=== PATIENT | female | born 1965 | race Caucasian/White ===

== ENCOUNTER → 2018-08-31 12:06 | Outpatient (CLI) | payer OTHER, SELFPAY ==
--- NOTE | 2018-08-31 12:07 | DI.MRI.S_ITS ---
PROCEDURE: MR SHOULDER RT WO CON INDICATIONS: BACK PAIN IMPINGEMENT SYNDROME OF RIGHT SHOULDER TECHNIQUE: Noncontrast oblique coronal T2 fast spin echo with fat saturation, oblique sagittal T1 spin echo and T2 fast spin echo with fat saturation, axial T1 spin echo and T2 fast spin echo with fat saturation through the shoulder. COMPARISON: None. FINDINGS: Image quality: Excellent. Rotator cuff: Supraspinatus tendinopathy, and partial thickness articular sided tear involving the footprint and critical zone. There is also low-grade bursal sided partial thickness tear and technically, full-thickness pinpoint perforation cannot be entirely excluded for example image 10 series 12. However, no large or retracted full-thickness defect is seen. Infraspinatus tendinopathy also with partial thickness articular sided tear. Teres minor appears intact. Subscapularis tendinopathy and thickening. Low-grade articular sided tear cannot be excluded. There is fatty infiltration of the supraspinatus and infraspinatus muscles. There is atrophy of the subscapularis muscle. Bones and bursae: No bone marrow contusions or fractures. Moderate acromioclavicular joint degeneration. The acromion demonstrates conventional anatomy, without an os acromiale. Moderate subacromial-subdeltoid bursal fluid is present. Capsule and soft tissues: Superior labrum is not well seen although there is suggestion of intrasubstance intermediate signal change. There is blunted appearance of the anterior and posterior labrum with no definite intrasubstance fluid signal, suggestive of chronic fraying/degeneration. The long head of the biceps tendon demonstrates normal location and morphology. There is obliteration of the subcoracoid fat. No stable no Fat signal intensity mass seen within the subscapularis muscle on image 19 series 7, image 19 series 6 although this is not entirely included on the study. IMPRESSION: Supraspinatus tendinopathy with partial-thickness articular sided tear of the footprint and critical zone in addition to low-grade bursal sided tear. Technically, there may be a pinpoint full-thickness perforation as detailed above. No large or retracted full-thickness defect. Infraspinatus tendinopathy, with partial-thickness articular sided tear. Subscapularis tendinopathy and thickening with possible low-grade articular sided tear (although this would probably be chronic). Atrophy of the subscapularis muscle. Fatty infiltration of the supraspinatus and infraspinatus muscles. Moderate subacromial/subdeltoid bursitis. Probable superior labral degenerative fraying, which could be chronic. Blunted appearance of the anterior and posterior labrum also represent chronic labral degeneration. Recommend correlation clinical exam findings. 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 Dictated by: Jez Calderon M.D. on 08/31/2018 at 15:21 Approved by: Jez Calderon M.D. on 08/31/2018 at 16:04
--- NOTE | 2018-09-01 | DI.MRI.S_ITS ---
PROCEDURE: MR LUMBAR SPINE WO CON INDICATIONS: LOW BACK PAIN TECHNIQUE: Noncontrast sagittal T1 spin echo and T2 fast echo, sagittal STIR, axial T1 and T2 fast spin echo through the lumbar spine. In cases with scoliosis, additional coronal T2 fast spin echo may be performed. COMPARISON: [facility], MR, L-SPINE WITHOUT CONTRAST, 07/09/2015, 10:22. FINDINGS: Image quality: Excellent. Alignment and Curvature: There is minimal retrolisthesis at the L4-L5 level. Bone Marrow: Marrow is of normal overall signal. No acute vertebral body compression fractures. Scattered foci are seen, which are hyperintense on T1-weighted and T2-weighted imaging, which are most consistent with benign vertebral body hemangiomas. Spinal Cord: Conus medullaris terminates at the L1 level. Visualized cord demonstrates normal signal and size. Paraspinous Soft Tissues: No paravertebral masses. T12-L1: Normal appearance. L1-L2: Normal appearance. L2-L3: Moderate to severe loss of disc height and disc signal are seen. Moderate generalized disc bulge is seen. Mild facet joint hypertrophy is seen. Moderate bilateral neural foraminal narrowing is seen. Mild central canal narrowing is seen. These degenerative changes are slightly progressed compared to 2015. L3-L4: Moderate loss of disc height is seen. Loss of disc signal is seen. Moderate generalized disc bulge is seen. Moderate facet joint hypertrophy is seen. Moderate bilateral neural foraminal narrowing is seen. Moderate central canal narrowing is seen. These degenerative changes are mildly progressed compared to the prior MRI. L4-L5: The disc height is well-preserved. Loss of disc signal is seen at this level. Moderate generalized disc bulge is seen. There is a central/left disc extrusion seen, as on series 5 images 24 through 26, with inferior migration of disc material. Moderate facet joint hypertrophy is seen. There is at least moderate bilateral neural foraminal narrowing seen, left worse than right. Moderate central canal narrowing is seen. These degenerative changes have progressed compared to 2015. The left-sided disc extrusion is new. L5-S1: The disc height is well-preserved. Loss of disc signal is seen at this level. Moderate to prominent facet hypertrophy is seen. Moderate bilateral neural foraminal narrowing is seen, left worse than right. Mild central canal narrowing is seen. These degenerative changes are worse than in 2015. IMPRESSION: New left-sided disc extrusion at the L4-L5 level. Multiple levels of degenerative change are seen, which have progressed compared to 2015. Dictated by: Randal Pena M.D. on 09/01/2018 at 12:13 Approved by: Randal Pena M.D. on 09/01/2018 at 12:19
== END ==
PROVIDERS: PCP Nurse Practitioner Primary Care; Visit Provider Nurse Practitioner Primary Care
DX: M75.41 Impingement syndrome of right shoulder (principal); M75.111 Incomplete rotator cuff tear or rupture of right shoulder, not specified as traumatic; M75.51 Bursitis of right shoulder; M51.26 Other intervertebral disc displacement, lumbar region
CPT/HCPCS: 72148; 73221

== ENCOUNTER 2018-10-29 13:33 | Day surgery (SDC) | payer OTHER, SELFPAY ==
[2018-10-25 10:10] VITALS: BMI 30.2
[2018-10-29] VITALS (17 sets, daily range): BP systolic 105–134; BP diastolic 71–86; PULSE 88–104; RESP 10–16; TEMP 36.6–37.2; O2SAT 2–98; BMI 30.2
--- NOTE | 2018-10-29 | DI.RAD.S_ITS ---
PROCEDURE: XR LUMBAR SPINE 2-3V INDICATIONS: L-4-5, MICRODISCECTOMY LEFT TECHNIQUE: Single views of the lumbar spine were acquired. COMPARISON: None. FINDINGS: Spot fluoroscopic image demonstrating surgical instrument with the tip projecting at the L4-L5 level Dictated by: Jez Calderon M.D. on 10/29/2018 at 16:27 Approved by: Jez Calderon M.D. on 10/29/2018 at 16:28
[2018-10-29] MEDS: LACTATED RINGERS 1,000 ML 100 ML IV (14:35)
--- NOTE | 2018-10-29 14:53 | PM.PREOP ---
Pre-operative Note Interval Note Pre-op Check: Yes History & Physical Reviewed by Physician, Yes Exam Performed and Yes History & Physical exam performed today by Physician Changes: No
[2018-10-29] MEDS: CEFAZOLIN 2 GM/100 ML FROZ.PIGGY IV (15:15)
--- NOTE | 2018-10-29 15:48 | SUR.OPER ---
Prone on spine table, head in foam head support, padded chest and pelvic supports, gel pad at knees, lower legs supported by pillows; nipples, genitalia and toes free of pressure, arms secured on foam padded arm boards at <90 degrees abduction. Tape over blanket at thigh secured to table.
[2018-10-29] MEDS: BUPIVACAINE 0.25% W/ EPI VIAL 20 ML INJ (15:57)
[2018-10-29] MEDS: methylPREDNISolone acet DEPO 40 MG/ML VIAL INJ (15:58)
--- NOTE | 2018-10-29 17:02 | PM.OP.1 ---
Operative Date/Time/Diagnoses Date of procedure: 10/29/18 Time of procedure: 15:36 Pre-op diagnosis: 1. L4-5 disc herniation 2. L4-5 spinal stenosis Post-op diagnosis: same Procedure & Clinicians Procedure: 1. L4-5 laminectomy 2. Utilization of microsurgical technique and operating microscope Same procedure as scheduled: No Indications: Patient has been having chronic back pain and worsening lumbar radiculopathy. Patient failed multiple conservative management with worsening pain weakness and numbness in her lower extremity. Patient has been having difficulty performing activity of daily living. After discussing risks benefits of treatment options, patient elected proceed with surgery. Surgeon: Ying Browne Garnett Mechanic: Chely Espinal Click Yes if Unassisted: No Anesthesia Type: General Operative Notes Closure Type: primary Specimen(s): none sent Estimated Blood Loss (mL): 10 Blood products transfused: none Procedure in detail: Patient was seen in the preoperative area. Risks and benefits of the surgery was discussed with the patient. Informed consent was obtained from the patient and placed in the chart. Surgical site was marked. Patient was taken to the operative room. General anesthesia was administered. Prophylactic antibiotic was given to the patient less than 30 min before the incision was made. Patient was placed into a prone position on the Godwin table. Patient's back was then prepped and draped in the sterile fashion. Time-out was performed at this time. Using AP and lateral C-arm imaging the interval between L4-5 was identified and marked on patient's back. A 1 inch incision 1 in from midline was made on the left side. The fascia was incised in line with skin incision. Globus MARS retractors was placed inside the incision and docked onto the L4 lamina. Using microsurgical technique and operating microscope, a L4 laminotomy was performed using a Kerrison rongeur. Liagamentum flavum was resected at the site of the laminotomy. The disc space at [] was identified. Microdiscectomy was attempted by exposing the fragment of disc that was herniated. The disc fragment was found to be intimately adhered to the posterior aspect of the thecal sac. Decision at this time was to perform a laminectomy at L4 level. Using a Kerrison rongeur bilateral aspect of the L4 lamina along with medial portion of the L4-5 facet was resected in order to decompress the epidural space. After the L4-5 laminectomy was completed, the area medial lateral superior and inferior to the area of the laminectomy was inspected and explored using a micro curette. No other impinging structure was identified. The wound was then irrigated with sterile normal saline. 40 mg Depo-Medrol was placed into the epidural space. The deep fascia was closed with 1-0 Vicryl. The subcutaneous tissue was closed with 2-0 Vicryl. The skin was closed with 4-0 Monocryl. Patient tolerated the procedure well. There were no complications. Patient was transferred recovery room in stable condition. Complications: none Condition: stable Disposition: PACU Plan for aftercare: Discharge to home
[2018-10-29] MEDS: fentaNYL 100 MCG/2 ML INJ 50 MCG IV ×3 (17:44→18:07)
[2018-10-29] MEDS: hydrOXYzine 50 MG/ML INJ IM (17:56)
[2018-10-29] MEDS: LACTATED RINGERS 1,000 ML 42 ML IV (17:59)
--- NOTE | 2018-10-29 18:11 | SUR.PHASEI ---
Although voicing discomfort and some moaning validates tending to drop sats and resps with opiod. Pain vs. breathing conflict discussed with patient. She is told further med needs to be given with resp state and therefore safety in mind.
--- NOTE | 2018-10-29 18:17 | SUR.PHASEI ---
Sats into the mid 80s and resps 8-10 with some spontaneous recovery seen.
--- NOTE | 2018-10-29 18:25 | SUR.PHASEI ---
On room air now with resp ups and downs continuing. No future opiod to be given. Projects increased comfort.
[2018-10-29] MEDS: HYDROCODONE/ACET 5/325 TABLET 1 TAB PO (18:42)
--- NOTE | 2018-10-29 19:24 | SUR.PHASEII ---
Discharge information shared with [facility] per patient okay.
== END 2018-10-29 19:28 | disposition home or self-care (01) ==
PROVIDERS: PCP Nurse Practitioner Primary Care; Visit Provider Orthopaedic Surgery Orthopaedic Surgery of the Spine
PROC: (CPT 63030; principal; 2018-10-29 15:45)
DX: M51.16 Intervertebral disc disorders with radiculopathy, lumbar region (principal); M48.061 Spinal stenosis, lumbar region without neurogenic claudication; M19.90 Unspecified osteoarthritis, unspecified site; W01.0XXA Fall on same level from slipping, tripping and stumbling without subsequent striking against object, initial encounter; E66.9 Obesity, unspecified; E03.9 Hypothyroidism, unspecified; G43.909 Migraine, unspecified, not intractable, without status migrainosus; E11.9 Type 2 diabetes mellitus without complications; F33.41 Major depressive disorder, recurrent, in partial remission; Z68.41 Body mass index [BMI] 40.0-44.9, adult; Z79.84 Long term (current) use of oral hypoglycemic drugs
CPT/HCPCS: 63030; 72100; 76001; J0690; J1030; J1100; J1885; J2250; J2405; J2704; J3010; J3410

== ENCOUNTER 2019-01-28 09:17 | Inpatient (IN) | payer OTHER, SELFPAY ==
[2019-01-17 12:50] VITALS: BMI 39.6
[2019-01-28] VITALS (19 sets, daily range): BP systolic 76–123; BP diastolic 43–85; PULSE 78–96; RESP 10–18; TEMP 35.8–37.2; O2SAT 92–100; BMI 37.6
[2019-01-28] MEDS: ONDANSETRON 4 MG/2 ML INJ IV (10:30)
[2019-01-28] MEDS: LACTATED RINGERS 1,000 ML 42 ML IV ×2 (10:31→13:35)
[2019-01-28] MEDS: fentaNYL 100 MCG/2 ML INJ 50 MCG IV ×2 (11:00→11:15)
--- NOTE | 2019-01-28 11:04 | SUR.PREOP ---
Pt requested pain med. Dr. Day notified, medication ordered and given. O2 monitor placed. O2 sats wnl.
--- NOTE | 2019-01-28 11:22 | PM.PREOP ---
Pre-operative Note Interval Note History & Physical reviewed/Exam performed by Physician: Yes Changes to H&P: No
[2019-01-28] MEDS: MIDAZOLAM 2 MG/2 ML VIAL IV (11:35)
[2019-01-28] MEDS: CEFAZOLIN 2 GM/100 ML FROZ.PIGGY IV ×2 (11:45→20:20)
[2019-01-28] MEDS: BUPIVACAINE LIPOSOME 266 MG/20 ML VIAL INJ (12:20)
[2019-01-28] MEDS: BUPIVACAINE 0.25% W/ EPI 50 ML VIAL INJ (12:21)
[2019-01-28] MEDS: ACETAMINOPHEN IV 1,000 MG/100 ML VIAL 400 MG IV (12:55)
--- NOTE | 2019-01-28 14:27 | DI.RAD.S_ITS ---
PROCEDURE: XR LUMBAR SPINE 2-3V INDICATIONS: L4-5 TLIF TECHNIQUE: 2 operative views of the lumbar spine were acquired. COMPARISON: [facility], CR, XR LUMBAR SPINE 2-3V, 10/29/2018, 15:37. FINDINGS: AP and lateral operative views demonstrate posterior lateral kenisha and pedicle screw fixation of L4-L5 and interbody fusion. There is no radiographic evidence of complications. IMPRESSION: Expected operative appearance. Dictated by: Joey Butterfield M.D. on 01/28/2019 at 14:53 Approved by: Joey Butterfield M.D. on 01/28/2019 at 14:55
--- NOTE | 2019-01-28 14:28 | PM.OP.1 ---
Operative Date/Time/Diagnoses Date of procedure: 01/28/19 Time of procedure: 12:28 Pre-op diagnosis: 1. L4-5 recurrent disc herniation 2. L4-5 spinal stenosis with radiculopathy Post-op diagnosis: same Procedure & Clinicians Procedure: 1. L4-5 Postero-lateral and posterior interbody fusion 2. L4-5 interbody cage placement. 3. L4-5 decompressive laminectomy with bilateral facetecomies 4. L4-5 Posterior non-segmental instrumentation 5. [place] of bone marrow from iliac crest 6. Utilization of microsurgical technique and operating microscope Same procedure as scheduled: Yes Indications: Patient has been having chronic back pain and worsening lumbar radiculopathy. Patient had prior lumbar microdiskectomy surgery with good pain relief. Patient has been having worsening radiculopathy over the last 2 month. Repeat MRI to identify recurrence disc herniation at L4-5 level. Patient failed multiple conservative management with worsening pain weakness and numbness in her lower extremity. Patient has been having difficulty performing activity of daily living. After discussing risks benefits of treatment options, patient elected proceed with surgery. Surgeon: Ying Browne Social Media Content Manager: Chely Espinal Click Yes if Unassisted: No Anesthesia Type: General Operative Notes Closure Type: primary Specimen(s): none sent Prosthetic devices, grafts, tissues, transplants, or devices: Globus revolve screws, Rise cage Estimated Blood Loss (mL): 100 Blood products transfused: none Procedure in detail: Patient was seen in the preoperative area. Risks and benefits of the surgery was discussed with the patient. Informed consent was obtained from the patient and placed in the chart. Surgical site was marked. Patient was taken to the operative room. General anesthesia was administered. Prophylactic antibiotic was given to the patient less than 30 min before the incision was made. Patient was placed into a prone position on the Godwin table. Patient's back was then prepped and draped in the sterile fashion. Time-out was performed at this time. Using AP and lateral C-arm imaging the interval between L4-5 was identified and marked on patient's back. A 2 inch incision 2 in from midline was made on the left side first. The fascia was incised in line with skin incision. Globus MARS retractors was placed inside the incision and docked onto the L4 lamina. Using microsurgical technique and operating microscope, a L4 laminectomy and L4-5 facetectomy was performed using a Kerrison rongeur. The disc space at L4-5 was identified. And a total diskectomy was performed at L4-5 level. The endplates were decorticated using a rasp and shaver. The total diskectomy and decortication was performed at L4-5 level in order to to accomplish a L4-5 fusion. The local bone from the laminectomy and facetectomy was saved for local bone grafting. After the total diskectomy and decortication was completed, Bio4 bone graft material was combined with local bone that was harvested earlier. At this time, a separate skin is incision was made over the iliac crest. A Jamshidi needle was inserted into the iliac crest through a separate skin incision. 5 cc of bone marrow aspiration was obtained through the separate skin incision using a Jamshidi needle from the iliac crest. The bone marrow aspiration was combined with local bone and the via cell bone grafting material. The bone grafting material was placed into the L4-5 interbody space along with a expandable cage. The cage was expanded to its maximum height using the torque limiting screwdriver. At this time a mirror image incision was made on the right side. The fascia was incised in line with the skin incision. Globus MARS retractor was inserted and docked onto the L4-5 posterolateral gutter. Using the power drill, posterior-lateral decortication was performed at L4-5 level until bleeding cortical bone was identified. The remaining bone grafting material was placed into the L4-5 posterior lateral gutter he order to accomplish posterolateral fusion at the L4-5 level. Using the double C-arm technique, pedicle screws were placed into the L4-5 pedicles bilaterally. This was done by placing the Jamshidi needle into the pedicles, then placing the guidewires over the Jamshidi needle, and finally placing the cannulated screws over the guidewires bilaterally. After the pedicle screws were placed, 2 titanium rods was locked into the heads of the pedicle screws using locking caps and torque limiting screwdriver. After all the hardware was placed, and confirmed with AP and lateral C-arm imaging, the wound was then irrigated with sterile normal saline and packed with Ray-Ruth gauze for 3 min to accomplish hemostasis. After the gauze was removed the deep fascia was closed with #1 Vicryl suture. The subcutaneous layer was closed with 2-0 Vicryl. The skin was closed with skin steven. Patient tolerated the procedure well. There were no complications. Complications: none Condition: stable Disposition: PACU Plan for aftercare: Admit to inpatient hospital
--- NOTE | 2019-01-28 14:32 | P.OP_ITS ---
Operative Date/Time/Diagnoses Date of procedure: 01/28/19 Time of procedure: 12:28 Pre-op diagnosis: 1. L4-5 recurrent disc herniation 2. L4-5 spinal stenosis with radiculopathy Post-op diagnosis: same Procedure & Clinicians Procedure: 1. L4-5 Postero-lateral and posterior interbody fusion 2. L4-5 interbody cage placement. 3. L4-5 decompressive laminectomy with bilateral facetecomies 4. L4-5 Posterior non-segmental instrumentation 5. [place] of bone marrow from iliac crest 6. Utilization of microsurgical technique and operating microscope Same procedure as scheduled: Yes Indications: Patient has been having chronic back pain and worsening lumbar radiculopathy. Patient had prior lumbar microdiskectomy surgery with good pain relief. Patient has been having worsening radiculopathy over the last 2 month. Repeat MRI to identify recurrence disc herniation at L4-5 level. Patient failed multiple conservative management with worsening pain weakness and numbness in her lower extremity. Patient has been having difficulty performing activity of daily living. After discussing risks benefits of treatment options, patient elected proceed with surgery. Surgeon: Ying Browne Composite Assembler: Chely Espinal Click Yes if Unassisted: No Anesthesia Type: General Operative Notes Closure Type: primary Specimen(s): none sent Prosthetic devices, grafts, tissues, transplants, or devices: Globus revolve screws, Rise cage Estimated Blood Loss (mL): 100 Blood products transfused: none Procedure in detail: Patient was seen in the preoperative area. Risks and benefits of the surgery was discussed with the patient. Informed consent was obt ained from the patient and placed in the chart. Surgical site was marked. Patient was taken to the operative room. General anesthesia was administered. Prophylactic antibiotic was given to the patient less than 30 min before the incision was made. Patient was placed into a prone position on the Godwin table. Patient's back was then prepped and draped in the sterile fashion. Time- out was performed at this time. Using AP and lateral C-arm imaging the interval between L4-5 was identified and marked on patient's back. A 2 inch incision 2 in from midline was made on the left side first. The fascia was incised in line with skin incision. Globus MARS retractors was placed inside the incision and docked onto the L4 lamina. Using microsurgical technique and operating microscope, a L4 laminectomy and L4-5 facetectomy was performed using a Kerrison rongeur. The disc space at L4-5 was identified. And a total diskectomy was performed at L4-5 level. The endplates were decorticated using a rasp and shaver. The total diskectomy and decortication was performed at L4-5 level in order to to accomplish a L4-5 fusion. The local bone from the laminectomy and facetectomy was saved for local bone grafting. After the total diskectomy and decortication was completed, Bio4 bone graft material was combined with local bone that was harvested earlier. At this time, a separate skin is incision was made over the iliac crest. A Jamshidi needle was inserted into the iliac crest through a separate skin incision. 5 cc of bone marrow aspiration was obtained through the separate skin incision using a Jamshidi needle from the iliac crest. The bone marrow aspiration was combined with local bone and the via cell bone grafting material. The bone grafting material was placed into the L4-5 interbody space along with a expandable cage. The cage was expanded to its maximum height using the torque limiting screwdriver. At this time a mirror image incision was made on the right side. The fascia was incised in line with the skin incision. Globus MARS retractor was inserted and docked onto the L4-5 posterolateral gutter. Using the power drill, posterior- lateral decortication was performed at L4-5 level until bleeding cortical bone was identified. The remaining bone grafting material was placed into the L4-5 posterior lateral gutter he order to accomplish posterolateral fusion at the L4- 5 level. Using the double C-arm technique, pedicle screws were placed into the L4-5 pedicles bilaterally. This was done by placing the Jamshidi needle into the pedicles, then placing the guidewires over the Jamshidi needle, and finally placing the cannulated screws over the guidewires bilaterally. After the pedicle screws were placed, 2 titanium rods was locked into the heads of the pedicle screws using locking caps and torque limiting screwdriver. After all the hardware was placed, and confirmed with AP and lateral C-arm imaging, the wound was then irrigated with sterile normal saline and packed with Ray-Ruth gauze for 3 min to accomplish hemostasis. After the gauze was removed the deep fascia was closed with #1 Vicryl suture. The subcutaneous layer was closed with 2-0 Vicryl. The skin was closed with skin steven. Patient tolerated the procedure well. There were no complications. Complications: none Condition: stable Disposition: PACU Plan for aftercare: Admit to inpatient hospital
[2019-01-28] MEDS: LORazepam 2 MG/ML SYRINGE 0.25 MG IV ×2 (14:41→15:19)
[2019-01-28] MEDS: HYDROMORPHONE 2 MG INJ 1 MG IV ×4 (14:42→15:18)
[2019-01-28] MEDS: hydrOXYzine 50 MG/ML INJ 25 MG IM (15:43)
[2019-01-28] MEDS: OXYCODONE/ACETAMINOPHEN 5/325 TABLET 2 TAB PO (15:44)
--- NOTE | 2019-01-28 15:47 | SUR.PHASEI ---
Called Dr Day to obtain medical orders. pt wanted percocet. pt states that is what works for her . Hydroxyzine 25mg given IM in right thigh. for muscle spasm.
[2019-01-28] MEDS: SODIUM CHLORIDE 0.9% 1,000 ML 100 ML IV (16:51)
[2019-01-28] MEDS: OXYCODONE IR 10 MG TABLET PO ×2 (17:44→20:23)
[2019-01-28] MEDS: hydrOXYzine pamoate 25 MG CAPSULE PO ×2 (17:47→21:43)
[2019-01-28] MEDS: HYDROMORPHONE 1 MG INJ 0.5 MG IV ×2 (19:36→21:41)
--- NOTE | 2019-01-28 20:18 | PC.NURSE ---
Pt sobbing in bed d/t pain in back 07/19. Pt was encouraged to turn onto side and allow staff to position for comfort with ice to site. This was attempted, but pt did not tolerate stating prefers backlying. Pt was assisted to reposition. Meds as per emar.
[2019-01-28] MEDS: ACETAMINOPHEN 325 MG TABLET 650 MG PO (20:20)
[2019-01-28] MEDS: CITALOPRAM 20 MG TABLET 40 MG PO (20:20)
[2019-01-28] MEDS: DOCUSATE 100 MG CAPSULE PO (20:21)
[2019-01-28] MEDS: lamoTRIgine 100 MG TABLET PO (20:21)
[2019-01-28] MEDS: PANTOPRAZOLE 40 MG TABLET PO (20:22)
[2019-01-28] MEDS: SENNOSIDES 8.6 MG TABLET 17.2 MG PO (20:22)
[2019-01-28] MEDS: SUCRALFATE 1 GM TABLET PO (20:23)
[2019-01-28] MEDS: TRAZODONE 100 MG TABLET PO (20:23)
--- NOTE | 2019-01-28 21:21 | PC.NURSE ---
Addendum entered and electronically signed by Patrice Velasquez R.N. 01/28/19 21:26: Pt has been on oxycodone 10 q 3 hrs, and hydromorphone 0.5 q 2 hrs for pain. Pain relief has only been at 6-7/10. Pt has had a hard time with her pain level and getting comfortable. Dressing was re-enforced w/ ABD pad, because of increases sangious drainage. Original Note: Safe hand off from PACU, pt A&O, on 2 liters NC, 98%. Lungs clear bilaterally. Dressing had quarter size ammt. of blood shadowing on dressing, otherwise clean dry and intact. Pt was dozing off and on.
[2019-01-29] VITALS (8 sets, daily range): BP systolic 93–130; BP diastolic 59–77; PULSE 75–93; RESP 16–18; TEMP 36.5–37.6; O2SAT 95–100
[2019-01-29] MEDS: hydrOXYzine pamoate 25 MG CAPSULE PO ×5 (01:29→21:52)
[2019-01-29] MEDS: OXYCODONE IR 10 MG TABLET PO ×3 (01:29→18:43)
[2019-01-29] MEDS: SODIUM CHLORIDE 0.9% 1,000 ML 100 ML IV (03:24)
[2019-01-29] MEDS: CEFAZOLIN 2 GM/100 ML FROZ.PIGGY IV (04:12)
[2019-01-29] MEDS: HYDROMORPHONE 1 MG INJ 0.5 MG IV (05:56)
--- NOTE | 2019-01-29 06:56 | PC.NURSE ---
pt AO and c/o pain throughout shift. Back pain at start of shift started at 7/10 administered oxycodone and Vistaril at 0130. Pain still at 8/10 at 0555 and administered IV 0.5mg Dilaudid. BP was 93/61 and 106/69. pt up to BSC and voiding. ABD pad reinforced to bad on evening shift. NS infusing at 100/hr.
[2019-01-29] MEDS: LEVOTHYROXINE 25 MCG TABLET PO (07:01)
--- NOTE | 2019-01-29 07:51 | PM.PNPO.1 ---
Subjective Date Patient Seen: 01/29/19 Interval history: Patient seen bedside status post L4-[address] Browne postop day 1. Patient had significant pain over night as well as issues with hypotension. She is very anxious today. Exam Vital Signs (past 8 hours): - 01/29/19 04:22 01/29/19 04:54 Temperature 98.5 F Pulse Rate 75 Respiratory Rate 16 Blood Pressure 93/61 106/69 Pulse Oximetry 100 Oxygen Delivery Method Nasal Cannula Oxygen Flow Rate 2 Narrative Exam Narrative: Well-developed, well-nourished, no acute distress. Alert and oriented to person, place, and time. Dressing on lumbar spine is clean, dry, and intact with no signs of drainage. Minimal erythema and generalized swelling around the surgical site. Neurovascularly intact in bilateral lower extremities with soft and compressible calves. Range of motion intact bilateral lower extremities. Objective Labs Result Diagrams: 01/29/19 08:15 Assessment & Plan Post-op (1) Lumbar stenosis: Postoperative Procedures Operation Date: 01/28/19 12:15 Actual Procedures Side Surgeon p L4-5 TLIF Ying Browne MD 1. POD #1- increased oxycodone dose, 1 L bolus for hypotension. Added steroid burst to help with pain. PT/OT. Dispo-pending pain control and movement with PT. Quality VTE Deep Vein Thrombosis/Pulmonary Embolism Present on Admission: No
[2019-01-29 08:29] LABS: Hematocrit 36.5 % (36-46); Hemoglobin 11.7 g/dL (12.0-16.0)
[2019-01-29] MEDS: SUCRALFATE 1 GM TABLET PO ×4 (08:57→20:40)
[2019-01-29] MEDS: DEXAMETHASONE 4 MG TABLET 8 MG PO (08:57)
[2019-01-29] MEDS: lamoTRIgine 100 MG TABLET PO ×2 (08:58→20:38)
[2019-01-29] MEDS: SPIRONOLACTONE 25 MG TABLET PO ×2 (08:58→20:39)
[2019-01-29] MEDS: PANTOPRAZOLE 40 MG TABLET PO ×2 (08:58→20:38)
[2019-01-29] MEDS: DOCUSATE 100 MG CAPSULE PO ×2 (09:00→20:38)
[2019-01-29] MEDS: OXYCODONE IR 10 MG TABLET 15 MG PO ×2 (09:01→12:02)
[2019-01-29] MEDS: SODIUM CHLORIDE 0.9% 1,000 ML 1000 ML IV (09:48)
--- NOTE | 2019-01-29 11:45 | PT.IIE ---
Current Diagnoses Spinal stenosis, lumbar region without neurogenic claudication (01/28/19) Other intervertebral disc displacement, lumbar region (01/28/19) Surgery Performed Operation Date: 01/28/19 12:15 Actual Procedures p L4-5 TLIF - Ynig Browne MD Surgical History (Last Updated 01/17/19 @ 13:15 by Marsha Shaw RN) History of colonoscopy (Acute) History of esophagogastroduodenoscopy (EGD) (Acute) History of abdominal surgery (Acute) History of carpal tunnel release (Acute) History of tonsillectomy (Acute) Hx of microdiscectomy (Acute 10/29/18) Medical History (Last Updated 01/17/19 @ 13:15 by Marsha Shaw RN) ADHD (Acute) Chronic back pain (Acute) Depression (Acute) Diabetes (Acute) GERD (gastroesophageal reflux disease) (Acute) Headache, migraine (Acute) History of hysterectomy (Acute) Hx of nephrolithotomy with removal of calculi (Acute) Hyperlipidemia (Acute) Hypertension (Acute) Hypothyroidism (Acute) Lumbar disc disease (Acute) Lumbar disc herniation with radiculopathy (Acute) Obesity (Acute) Osteoarthritis (Acute) Partial tear of rotator cuff (Acute) Rotator cuff tear arthropathy of right shoulder (Acute) Shoulder impingement (Acute) Shoulder pain, right (Acute) Wrist injury (Acute ~09/23/18) Physical Therapy Inpatient Evaluation/Re-Eval M1 PT/OT-IP Prior Functional Status Start: 01/29/19 12:34 Freq: NEEDED Status: Active Protocol: Document 01/29/19 11:45 DLM (Rec: 01/29/19 12:54 DLM [email or web address]) Medical Review Prior Functional Status Medical History Reviewed Yes Diet/Fluid Consistency Regular Communication WNL Mobility and Gait Independent without device, used cane to help manage her back pain, difficulty walking before surgery due to high pain levels Activities of Daily Living and IADL's Independent Prior Functional Level (Other details) she has two dogs Social History Household Members none Living Arrangements Mobile home Number of Floors (Floors) One Floor Number of Stairs To Enter/Railing? 2, no rail Home Equipment Quad Cane Additional Social History Comment Works for [employer]. She has narrow halls at home. M2 PT-IP Current Condition Start: 01/29/19 12:34 Freq: NEEDED Status: Active Protocol: Document 01/29/19 11:45 DLM (Rec: 01/29/19 12:54 DLM [email or web address]) Physical Therapy Current Condition Current Condition Evaluation Date 01/29/19 Treatment Diagnosis L4-5 TLIF Onset Date 01/28/19 Precautions Lumbar Precautions Log Roll No Twisting Limit Bending Lifting Restriction of 10 lbs Gait Belt above Incisional Area M3 PT-IP Subjective Start: 01/29/19 12:34 Freq: NEEDED Status: Active Protocol: Document 01/29/19 11:45 DLM (Rec: 01/29/19 12:54 DLM [email or web address]) Subjective Physical Therapy Visit Type Type Initial Evaluation Visit Start Time 11:16 Visit Stop Time 11:45 Total Visit Minutes 29 Number of APPLICATIONS ENGINEERING MANAGER Visits 0 Physical Therapy Visit Comments Patient Comments The pain is really bad but still better than before surgery Patient Goals return home with friends to help her Therapy Pain Assessment Pain When Pain Assessed After Treatment Pain Present Pain Present Pain Reported Location Back Intensity 7 Scale Used Numeric (1 - 10) Description Aching Cramping With Movement Pain Behaviors Crying Facial Grimacing Guarding Moaning Wincing Pain Management Techniques Re-positioning M4 PT-IP Mobility and Gait Start: 01/29/19 12:34 Freq: NEEDED Status: Active Protocol: Document 01/29/19 11:45 DLM (Rec: 01/29/19 12:54 DLM [email or web address]) PT-Bed Mobility Assessment Rolling Type of Rolling Log Rolling Roll to Left Supine to Sit Supine to Sit Moderate Assistance Maximum Assistance Scooting Scooting to Edge of Bed Standby Assistance PT-Transfer Assessment Sit to and From Stand Sit to and from Stand Minimal Assistance Use of Upper Extremities Equipment Transfer Assistive Device Gait Belt Front Wheeled Walker Transfers Transfer Destination Chair Bedside Commode Transfer Technique Stand Step Pivot Transfer Ability Level of Assist Minimal Assistance Use of Upper Extremities Comments Mobility Comments up to bedside commode to urinate Gait Assessment Gait Gait Assistance Required: Contact Guard Assist Minimum Assistance Distance (Feet) 4 Assistive Devices Assistive Device Gait Belt Front Wheeled Walker Gait Deviations General Gait Pattern Antalgic Factors Limiting Gait Function Factors Limiting Gait Function Decreased Activity Tolerance Decreased Strength Limited Range of Motion Pain Comments Gait Comments able to bear weight on LE's PT-Balance Assessment Sitting Balance and Reactions Static Sitting Balance Ability Fair Dynamic Sitting Balance Ability Fair Standing Balance and Reactions Static Standing Balance Ability Fair Dynamic Standing Balance Ability Fair Device Used FWW Comments Other Balance Tests/Deviations/Treatment balance limited due to back : pain M5 PT-IP Objective Assessments Start: 01/29/19 12:34 Freq: NEEDED Status: Active Protocol: Document 01/29/19 11:45 DLM (Rec: 01/29/19 12:54 DLM [email or web address]) Orientation Orientation/Cognition Level of Alertness Alert Orientation Name Age Birthday Month Date Year Day of Week Place Situation Language Function Ability No Deficits Noted Safety Awareness Understands Safety Issues Memory Description No Deficits Noted Gross Range of Motion Upper Extremity ROM Assessment Within Functional Limits Impairments trunk impaired due to pain Lower Extremity ROM Assessment Within Functional Limits Strength Upper Extremity Strength Assessment Within Functional Limits Lower Extremity Strength Assessment Bilaterally Impaired Hip pain limits functional use Coordination Assessment Gross Coordination Gross Coordination WNL Sensation Assessment Sensation Gross Sensation Left LE Impaired Sensation Description Tingling Comments Sensation Comments tingling in left LE, improved since surgery per pt Muscle Tone Muscle Tone WNL Yes Comments Muscle Tone Comments she reports muscle cramping M6 PT-IP Treatment Start: 01/29/19 12:34 Freq: NEEDED Status: Active Protocol: Document 01/29/19 11:45 DLM (Rec: 01/29/19 12:54 DLM [email or web address]) Physical Therapy Treatment Exercises Exercises Ankle Pumps Education Education Provided Precautions Safety Vital Signs: Seated Edge of Bed BP 105/60 and HR 93 While on bedside commode BP 116/79 and HR 98 Seated in recliner BP 104/72 and HR 89 NO light-headedness nor dizziness reported. M7 PT-IP Assessment and Plan Start: 01/29/19 12:34 Freq: NEEDED Status: Active Protocol: Document 01/29/19 11:45 DLM (Rec: 01/29/19 12:54 DLM [email or web address]) PT Summary Assessment and Plan Potential Rehabilitation Potential Good Status of Condition at Evaluation Unstable Summary Impairments Pain ROM Strength Balance Bed Mobility Transfers Gait Activity Tolerance Assessment Summary Benita reports having high levels of pain. She was able to get up to bedside commode and to recliner this visit with fWW and one person assist . Her pain prevented her from further gait this visit. She is motivated to return home with assist from friends. She will need to continue to progress to be safe to return home. She used a fWW well today but she is uncertain if a fWW will fit down the halls of her mobile home which are very narrow. Will continue to assess for discharge planning and equipment needs as she progresses. Goals Bed Mobility Goal Independent Transfer Goal Independent Front Wheeled Walker Gait Goal Independent Front Wheel Walker Gait Distance 100 feet Other Goals Up and down 2 steps with min assist. Days to Meet Goals 3 Frequency of Treatment Frequency Of Treatment Twice a Day Treatment Plan Physical Therapy Treatment Plan Bed Mobility Training Transfer Training Gait Training Therapeutic Exercise Balance Retraining Post Op Education Discharge Planning Hot or Cold Pack Other Recommendations and Next Treatment encourage relaxation Focus techniques to manage her pain Recommendations To Nursing Amount of Assist Needed 1 Person Assist Discharge Recommendations PT Discharge Recommendations Home with Assistance Other Discharge Recommendations continue to assess for discharge planning Equipment Needed for Home Before possible FWW Discharge
--- NOTE | 2019-01-29 14:53 | OT.IP.EVAL ---
Current Diagnoses Spinal stenosis, lumbar region without neurogenic claudication (01/28/19) Other intervertebral disc displacement, lumbar region (01/28/19) Surgery Performed Operation Date: 01/28/19 12:15 Actual Procedures p L4-5 TLIF - Ying Browne MD Past Medical History (Last Updated 01/17/19 @ 13:15 by Marsha Shaw, RN) ADHD (Acute) Chronic back pain (Acute) Depression (Acute) Diabetes (Acute) GERD (gastroesophageal reflux disease) (Acute) Headache, migraine (Acute) History of hysterectomy (Acute) Hx of nephrolithotomy with removal of calculi (Acute) Hyperlipidemia (Acute) Hypertension (Acute) Hypothyroidism (Acute) Lumbar disc disease (Acute) Lumbar disc herniation with radiculopathy (Acute) Obesity (Acute) Osteoarthritis (Acute) Partial tear of rotator cuff (Acute) Rotator cuff tear arthropathy of right shoulder (Acute) Shoulder impingement (Acute) Shoulder pain, right (Acute) Wrist injury (Acute ~09/23/18) Surgical History (Last Updated 01/17/19 @ 13:15 by Marsha Shaw RN) History of colonoscopy (Acute) History of esophagogastroduodenoscopy (EGD) (Acute) History of abdominal surgery (Acute) History of carpal tunnel release (Acute) History of tonsillectomy (Acute) Hx of microdiscectomy (Acute 10/29/18) Occupational Therapy Inpatient Evaluation/Re-Eval M1 PT/OT-IP Prior Functional Status Start: 01/29/19 12:34 Freq: NEEDED Status: Active Protocol: Document 01/29/19 14:53 EDISON (Rec: 01/29/19 15:59 PJM [id number]) Medical Review Prior Functional Status Medical History Reviewed Yes Diet/Fluid Consistency Regular Communication WNL Mobility and Gait Independent without device, used cane to help manage her back pain, difficulty walking before surgery due to high pain levels Activities of Daily Living and IADL's Independent with all self care , friend has been assisting with housework due to pt's LBP , pt has 2 dogs Prior Functional Level (Other details) 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 Social History Household Members none Living Arrangements Mobile home Number of Floors (Floors) One Floor Number of Stairs To Enter/Railing? 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 Additional Social History Comment pt states friends can assit with dogs and client services assistant after d/c PRN M2 OT-IP Current Condition Start: 01/29/19 15:38 Freq: Status: Active Protocol: Document 01/29/19 14:53 PJM (Rec: 01/29/19 15:59 PJM [email or web address]) Occupational Therapy Current Condition Current Condition Evaluation Date 01/29/19 Treatment Diagnosis decreased self care, functional mobility S/P L4-5 TLIF Diagnosis Onset Date 01/28/19 Post Operative Precautions Lumbar Precautions Log Roll No Twisting Limit Bending Lifting Restriction of 10 lbs Gait Belt above Incisional Area M3 OT- IP Subjective and Pain Start: 01/29/19 15:38 Freq: Status: Active Protocol: Document 01/29/19 14:53 PJM (Rec: 01/29/19 15:59 PJM [id number]) OT- Subjective Occupational Therapy Visit Type Type Initial Evaluation Visit Start Time 14:14 Visit Stop Time 14:53 Total Visit Minutes 39 Notes Pt started on steroids this AM , per RN, due to high pain level. Occupational Therapy Visit Comments Patient Comments This really hurts. Patient/Caregiver Goals to have less pain, go home and see her dog. OT Pain Assessment Pain When Pain Assessed After Treatment Pain Present Pain Present Pain Reported Location Rt shoulder Intensity 8 Description Aching Acute Pain Behaviors Facial Grimacing Guarding Moaning Wincing Management Techniques Distraction Re-positioning Timing of Activity with Medications M4 OT- IP ADL's Start: 01/29/19 15:38 Freq: Status: Active Protocol: Document 01/29/19 14:53 PJM (Rec: 01/29/19 15:59 PJM [id number]) OT [id number] General Evaluation Self-Feeding Ability Independent OT ADL-Grooming General Evaluation Grooming Ability Standby Assistance Comments OT Grooming Comments after set up in chair OT ADL-Oral Care General Eval Oral Care Ability Standby Assistance Areas of Assistance Brushing Teeth Devices Oral Care Devices Toothbrush Comments Oral Care Comments after set up in chair OT ADL-Dressing General Eval Upper Body Dressing Ability Standby Assistance Lower Body Dressing Ability Maximum Assistance Assistive Devices Dressing Assistive Devices Long Handled Shoe Horn [employer] Project Engineer Sock Aid Comments OT Dressing Comments Began education re: use of senior clinical research scientist, sock aid and long shoe horn for LB dressing within lumbar spine precautions. All equipt provided at pt request. OT ADL-Toileting General Evaluation Toileting Ability Standby Assistance Areas Needing Assistance Perform Perineal Hygiene Devices Toileting Assistive Devices Commode Comments OT Toileting Comments Provided education re: body mechanics and options/ resources for toilet paper aids. OT ADL-Bathing Bathing Type Bathing Type Shower Comments OT Bathing Comments Pt has been sitting on edge of tub shower combo for shower. Pt has long bath sponge. Provided education re: body mechanics and recommend shower seat. Resource list provided. M5 OT- IP IADL's Start: 01/29/19 15:38 Freq: Status: Active Protocol: Document 01/29/19 14:53 PJM (Rec: 01/29/19 15:59 PJ [id number]) OT-Instrumental Activities of Daily Living Deficits IADL Deficits Identified Deficits Home Safety Awareness Awareness of Need for Assistance at Home Good Awareness Ability to Problem Solve Emergency Able to Problem Solve Situations Medication Management Medication Management No Deficits Identified Money Management Money Management No Deficits Identified Meal Preparation Meal Preparation Caregiver Provides Assist Meal Preparation Comments pt states friends can assist PRN after d/c until pt able Washing And Screening Plant Supervisor Washing And Screening Plant Supervisor Caregiver Provides Assist Washing And Screening Plant Supervisor Comments pt states friends can assist PRN after d/c until pt able Driving Driving Caregiver Provides Assist Driving Comments pt states friends can assist PRN after d/c until pt able M6 OT- IP Functional Cognition Start: 01/29/19 15:38 Freq: Status: Active Protocol: Document 01/29/19 14:53 PJM (Rec: 01/29/19 15:59 PJM [id number]) Cognitive Factors Limiting Selfcare Function Cognitive Ability Level of Alertness Alert Patient Orientation Name Age Birthday Month Date Year Day of Week Place Situation Attention Span Ability Capable of Focused Attention Capable of Sustained Attention Ability to Follow Commands Able to Follow One Step Commands Memory Description No Deficits Noted Safety Awareness No Deficits Noted Problem Solving Ability No deficits Noted Cognitive Comments Cognitive Assessment Comments pt distracted by high pain level but asking apporpriate questions about adapted ADLS OT- Vision and Hearing OT- Hearing Assessment OT- Hearing Assessment WFL OT- Vision Assessment Visual Acuity WFL M7 OT- IP Mobility and Balance Start: 01/29/19 15:38 Freq: Status: Active Protocol: Document 01/29/19 14:53 PJM (Rec: 01/29/19 15:59 PJM [id number]) OT- Bed Mobility Assessment Rolling Type of Rolling Roll to Left Level of Assistance Standby Assistance Supine to Sit Supine to Sit Assist Standby Assistance Scooting Scooting to Edge of Bed Standby Assistance OT-Transfer Assessment Sit to and From Stand Sit to and from Stand Contact Guard Assistance Transfers Transfer Ability Contact Guard Assistance Technique Transfer Destination Bedside Commode Chair Transfer Technique Stand Step Pivot Devices Transfer Assistive Devices Gait Belt Front Wheeled Walker Comments Mobility Comments close SBA and verbal cues for bed mobility for technique OT- Gait Assessment Gait Gait Assistance Required: Contact Guard Assist Distance (Feet) 3 Assistive Devices Assistive Device Gait Belt Front Wheeled Walker Comments Gait Ability Comments distance limited by high pain level OT- Balance Assessment Sitting Balance and Reactions Static Sitting Balance Ability Good Dynamic Sitting Balance Ability Good Standing Balance and Reactions Static Standing Balance Ability Good M8 OT- IP Objective Assessments Start: 01/29/19 15:38 Freq: Status: Active Protocol: Document 01/29/19 14:53 PJM (Rec: 01/29/19 15:59 PJM [id number]) OT Gross Range of Motion Upper Extremity Range of Motion Assessment Right Impaired ROM Impairments R shoulder scaption limited to ~70 degrees by pain with shoulder surgery pending. Pt is scheduled for R shoulder arthroscopic debridement of partial rotator cuff tear in February. Distal AROM WFL in RUE. LUE AROM WFL. OT Strength Upper Extremity Strength Assessment Within Functional Limits Hand Headlight Assembler Strength Hand Dominance Right Comments Strength Comments R shoulder NT due to pain. OT- Coordination Assessment Comments Coordination Comments WFL BUE OT-Muscle Tone Assessment Muscle Tone WNL Yes OT Sensation Assessment Comments Summary Comments Pt reports some numbness/ tingling of fingertips in R hand. Otherwise BUE WNL. M9 OT- IP Assessment and Plan Start: 01/29/19 15:38 Freq: Status: Active Protocol: Document 01/29/19 14:53 PJM (Rec: 01/29/19 15:59 PJM [id number]) OT Summary Assessment and Plan Potential Rehabilitation Potential Good Analytic Complexity at Evaluation Low Summary OT Impairments Pain Functional Mobility Grooming Dressing Toileting Bathing Toilet Transfers Shower Transfers Progress Towards Goals Slow Progress due to Pain Assessment Summary Low complexity OT assessment completed with emphasis on lumbar spine precautions after recent L4-5 fusion. Pt's high pain level significantly interfering with activity tolerance today. Pt currently has performance deficits in all functional mobility/ transfers, standing grooming, dressing, bathing and toileting. Began education re: lumbar spine precautions, adapted self care techniques for dressing and toileting. Anticipate pt will progress steadily once pain level decreases, and be able to d/c home with assist from friends . Goals Grooming Goal Independent Dressing Goal Independent Long Handled Shoe [employer] Project Engineer Sock Aid Toileting Goal Independent Toilet Paper Aid Bathing Goal Standby Assistance Toilet Transfer Goal Independent Standard Toilet Shower Transfer Goal Standby Assistance Tub/Shower Combination Shower Chair Patient/Caregiver Education Goal Demonstrate Post-Op Precautions Demonstrate Energy Conservation and Pacing Caregiver Independent Assisting Patient OT-Other Goals Grooming to be done standing at sink with good body mechanics and safety awareness . Days to Meet Goals 3 Frequency of Treatment Frequency Of Treatment Once a Day Treatment Plan OT Treatment Plan ADL Training Functional Mobility Patient/Family Education Discharge Planning Discharge Recommendations OT Discharge Recommendations Home with Assistance Home Equipment Needs shower seat, toilet paper aid (pt plans to order these online)
[2019-01-29] MEDS: OXYCODONE IR 5 MG TABLET 15 MG PO ×3 (14:56→21:52)
--- NOTE | 2019-01-29 15:00 | PT.IPTN ---
Current Diagnoses Spinal stenosis, lumbar region without neurogenic claudication (01/28/19) Other intervertebral disc displacement, lumbar region (01/28/19) Surgery Performed Operation Date: 01/28/19 12:15 Actual Procedures p L4-5 TLIF - Ying Browne MD Physical Therapy Treatment Note M2 PT-IP Current Condition Start: 01/29/19 12:34 Freq: NEEDED Status: Active Protocol: Document 01/29/19 11:45 DLM (Rec: 01/29/19 12:54 DLM [email or web address]) Physical Therapy Current Condition Current Condition Evaluation Date 01/29/19 Treatment Diagnosis L4-5 TLIF Onset Date 01/28/19 Precautions Lumbar Precautions Log Roll No Twisting Limit Bending Lifting Restriction of 10 lbs Gait Belt above Incisional Area M3 PT-IP Subjective Start: 01/29/19 12:34 Freq: NEEDED Status: Active Protocol: Document 01/29/19 15:00 DLM (Rec: 01/29/19 17:19 DLM [email or web address]) Subjective Physical Therapy Visit Type Type Treatment Note Visit Start Time 14:45 Visit Stop Time 15:00 Total Visit Minutes 15 Number of HOME FURNISHINGS SALES REPRESENTATIVE Visits 0 Physical Therapy Visit Comments Patient Comments She c/o pain in her back that goes into her LE's Therapy Pain Assessment Pain When Pain Assessed After Treatment Pain Present Pain Present Pain Reported Location Back Intensity 9 Scale Used Numeric (1 - 10) Description Aching Cramping Pain Behaviors Facial Grimacing Guarding Moaning Wincing Pain Management Techniques Apply Cold Re-positioning M4 PT-IP Mobility and Gait Start: 01/29/19 12:34 Freq: NEEDED Status: Active Protocol: Document 01/29/19 15:00 DLM (Rec: 01/29/19 17:19 DLM [email or web address]) PT-Bed Mobility Assessment Rolling Type of Rolling Log Rolling Roll to Left Level of Assist Standby Assistance Supine to Sit Supine to Sit Standby Assistance Sit to Supine Sit to Supine Minimal Assistance Scooting Scooting to Edge of Bed Standby Assistance PT-Transfer Assessment Sit to and From Stand Sit to and from Stand Contact Guard Assistance Use of Upper Extremities Equipment Transfer Assistive Device Gait Belt Front Wheeled Walker Transfers Transfer Destination Bed Transfer Technique Stand Step Pivot Transfer Ability Level of Assist Contact Guard Assistance Use of Upper Extremities Gait Assessment Gait Gait Assistance Required: Contact Guard Assist Distance (Feet) 10 Assistive Devices Assistive Device Gait Belt Front Wheeled Walker Gait Deviations General Gait Pattern Decreased Stride Length Factors Limiting Gait Function Factors Limiting Gait Function Decreased Activity Tolerance Pain Comments Gait Comments gait 2 x 10 feet, seated rest between gait trials, she reports increased pain in her bilateral LE's with gait PT-Balance Assessment Sitting Balance and Reactions Static Sitting Balance Ability Good Dynamic Sitting Balance Ability Good Standing Balance and Reactions Static Standing Balance Ability Good Dynamic Standing Balance Ability Fair Device Used FWW M5 PT-IP Objective Assessments Start: 01/29/19 12:34 Freq: NEEDED Status: Active Protocol: Document 01/29/19 15:00 DLM (Rec: 01/29/19 17:19 DLM [email or web address]) Orientation Orientation/Cognition Level of Alertness Alert Orientation Name Age Birthday Month Date Year Day of Week Place Situation Language Function Ability No Deficits Noted Safety Awareness Understands Safety Issues Memory Description No Deficits Noted M6 PT-IP Treatment Start: 01/29/19 12:34 Freq: NEEDED Status: Active Protocol: Document 01/29/19 15:00 DLM (Rec: 01/29/19 17:19 DLM [email or web address]) Physical Therapy Treatment Exercises Exercises Ankle Pumps Education Education Provided Precautions Post-Op Packet Safety M7 PT-IP Assessment and Plan Start: 01/29/19 12:34 Freq: NEEDED Status: Active Protocol: Document 01/29/19 15:00 DLM (Rec: 01/29/19 17:19 DLM [email or web address]) PT Summary Assessment and Plan Summary Impairments Pain ROM Strength Balance Bed Mobility Transfers Gait Activity Tolerance Progress Towards Goals Slow Progress due to Pain Assessment Summary Benita continues to report high levels of pain during this visit. She tolerated short distances of gait with FWW in her room with increased pain. Pt returned to bed after gait due to pain and fatigue. Her pain limits her activity tolerance at this time. She is not ready to discharge home. Goals Bed Mobility Goal Independent Transfer Goal Independent Front Wheeled Walker Gait Goal Independent Front Wheel Walker Gait Distance 100 feet Other Goals Up and down 2 steps with min assist. Days to Meet Goals 3 Frequency of Treatment Frequency Of Treatment Twice a Day Treatment Plan Physical Therapy Treatment Plan Bed Mobility Training Transfer Training Gait Training Therapeutic Exercise Balance Retraining Post Op Education Discharge Planning Hot or Cold Pack Recommendations To Nursing Amount of Assist Needed 1 Person Assist Discharge Recommendations PT Discharge Recommendations Home with Assistance Other Discharge Recommendations continue to assess for discharge planning Equipment Needed for Home Before possible FWW Discharge
--- NOTE | 2019-01-29 15:13 | CM.DANOTE ---
Addendum entered by Yodit Laguerre 01/29/19 15:22: Initial clinical faxed to [place]. Original Note: DCP/Assessment: Reviewed chart. Patient is a 53yr old female admitted [facility] for L4-5 TLIF w/p[osterior instrumentation on 01-28-[address] Browne. PCP is Johanne Shirley in [place]. Primary payor is [facility]. Patient seen by PT this AM current recommendation is home vs. SNF pending progress. Per therapy and Ortho/PA patient in a lot of pain today. Met with patient explained CM/SW role. Patient sitting in recliner having meal at time of visit. Patient confirms that she has had difficulty getting my pain under control. Patient reports that she hopes to go home at time of d/c. Patient not at all interested in SNF. Patient has cane at home. Therapy recommend walker however, patient in mobile home and has very limited amount of space. Therapy to determine safest DME for patient at her residence. Based on above it is anticipated that patient may need extra day at [facility] to work with therapy and get pain under control. Orthopedic PA aware and does not anticipate any issue with keeping her an extra day if needed. Patient aware and agreeable. P: Anticipate home when stable. Patient prefers home vs. SNF. Patient reports that she has family/friends to assist. CM team following closely. RAPHAEL Spencer Discharge Planning/Care Management CM Discharge Assessment Start: 01/29/19 15:10 Freq: Status: Active Protocol: Document 01/29/19 15:10 KJS (Rec: 01/29/19 15:13 KJS [id number]) Discharge Planning Assessment Assigned Bellperson RAPHAEL Spencer Contact Information Cheryl Rice (daughter) Advance Directives? Yes Advance Directives on File No History Provided By Patient Medical Record Prior Living Arrangements Mobile home Household Members none Type of transporation used prior to Drives own vehicle admit Independent with ADL's Yes Is patient alert and oriented? Yes Caregiver for Another No DME Already Rented / Owned Cane Barriers to Discharge No Discharge Plan Home Transportation Arrangement Family/friends to provide transport when medically stable Whiteboard Updated in Patient Room with Yes name and ext. # of Bellperson Review Status In Process Next Review Type Continued Stay Review Pre-Anesthesia Assessment Start: 01/17/19 12:50 Freq: Status: Complete Protocol: Document 01/17/19 12:50 CAB (Rec: 01/17/19 13:33 CAB [id number]) Pre-Anesthesia Assessment Patient Also Known As Kumari (AKA) Patient Information Reviewed Via Phone Assessment Assessment Completed With Patient Consent for Planned Operative Procedure( Yes s) Verified H&P Completed Within 30 Days Yes Diagnostic Results BMP/CMP CBC EKG Comment Outside labs/ECG scanned to record Primary Care Provider Johanne Shirley Seen Specialist in Last 12 Months Yes Specialist Seen Orthopedist Urologist Primary Language Sinhala Bio[employer] Team Member Required No Height 147.32 cm Weight 86.183 kg Body Mass Index (BMI) 39.6 Hearing Ability Normal Visual Assist Contacts Glasses Dentition Type Teeth, Natural Present Teeth, Broken Barriers to Learning None Comment Temporary front tooth Hx Anesthesia Reactions Yes: Nausea and vomiting post- op Hx Family Anesthesia Reaction No Hx Malignant Hyperthermia No Hx Blood Transfusions No Anesthesia Review Requested No Senior Clinical Research Associate No alcohol intake current alcohol intake frequency holidays/special occasions only Smoking Status Never smoker Substance Use Type does not use Pain Present Pain Reported Musculoskeletal Symptoms Abnormal Gait Back Pain Difficulty Walking Limited Range of Motion Muscle Cramps Muscle Spasms Muscle Weakness Neck Pain Numbness Radiating Pain into Limb Tingling History of Falling (Recent or History of Yes ) Patient is completely paralyzed or No completely immobile Prosthesis or Orthotic Device Cane Mental Status Oriented to own ability Is patient on oxygen? No Does patient have ALVAREZ/SOB No Hx Sleep Apnea No Suspected Sleep Apnea Yes Currently Taking a Beta Dejan No Can You Climb a Flight of Stairs Without No SOB Hx Chest Pain No Hx SOB No Hx Syncope or Dizziness No Anti-Coagulant Therapy No Has a Personnel Administrator No Cardiac Testing No Hx Pacemaker/ICD No Pacemaker Rep Required? No Cardiac Clearance Received Not Applicable Diet Type At Home Regular Low Carb dysphagia No Urinary Catheter Present No Hx Urinary Self Catheterization No Diabetes Yes HgbA1C 6.6 Date 01/11/19 Patient No Lactating No Hx Drug Resistant Organism No Presence of External or Internal Medical No Devices Have you traveled outside the [facility] in the last 30 days? Marital Status Lives With none Prior Living Arrangements Mobile home Number of Stairs To Enter/Railing? 3 stairs, no railing Support System Child/Children Friend(s) Does the Patient Have Assistance After Yes Surgery Patient Discharge Plan Description Return Home Comment Pt advised at least one night length of stay per surgeon's office Feels Safe in Current Environment Yes Been Physically Hurt or Threatened By a No Person in Current Environment Do you have thoughts of harming yourself None or others? Are you currently considering suicide? No Do you have a plan to hurt yourself or No Plan others? Do You Have Any Spiritual Beliefs That No May Affect Your HC Choices? Do You Have Any Cultural Practices That No May Affect Your HC Choices? Spiritual Referral None Comment Denominational Who Can We Speak to About Patient's Care Family, friends Identifying Code for Release of Patient Declines to issue Information Health Care Proxy/Next of Kin Cheryl Rice (daughter) Health Care Proxy Emergency Contact Name Cheryl Rice (daughter) Emergency Contact Advance Directives? Yes Advance Directives on File No Requested Patient Bring Advanced Yes Directives DOS Power of Fiberglass Model Maker Yes Power of Fiberglass Model Maker Name Cheryl Rice (daughter) Power of Fiberglass Model Maker PAC Instructions Durable medical equipment Medications to take/avoid Nasal antibiotic No ETOH/petroleum product on skin DOS NPO Post-op transportation Pre-surgical wash Sensory aids Sturdy shoes/comfortable clothes Do not bring valuables and remove jewelry Stop Bang Assessment Do you snore loudly (louder than talking Yes or loud enough to be heard through closed doors) Do you often feel tired, fatigued or Yes sleepy during the daytime Has anyone ever observed you stop Yes breathing while sleeping? Do you have, or are you being treated Yes for, high blood pressure Is your BMI more than 35 kg/m2 Yes Age over 50 Yes Estimated neck circumference greater Yes than 40cm or 16in Gender male No Result Positive
[2019-01-29] MEDS: DEXAMETHASONE 4 MG TABLET PO ×2 (16:55→21:52)
[2019-01-29] MEDS: CITALOPRAM 20 MG TABLET 40 MG PO (20:38)
[2019-01-29] MEDS: SENNOSIDES 8.6 MG TABLET 17.2 MG PO (20:39)
[2019-01-29] MEDS: TRAZODONE 100 MG TABLET PO (20:40)
[2019-01-30] MEDS: LEVOTHYROXINE 25 MCG TABLET PO (06:12)
[2019-01-30] MEDS: DEXAMETHASONE 4 MG TABLET PO ×2 (06:12→14:00)
[2019-01-30] MEDS: OXYCODONE IR 5 MG TABLET 15 MG PO ×6 (06:17→21:57)
[2019-01-30 08:00] VITALS: BP 102/67; PULSE 68; RESP 18; TEMP 36.6; O2SAT 95
[2019-01-30] MEDS: DOCUSATE 100 MG CAPSULE PO ×2 (09:20→21:56)
[2019-01-30] MEDS: SUCRALFATE 1 GM TABLET PO ×4 (09:20→21:53)
[2019-01-30] MEDS: SPIRONOLACTONE 25 MG TABLET PO ×2 (09:20→21:53)
[2019-01-30] MEDS: lamoTRIgine 100 MG TABLET PO ×2 (09:21→21:53)
[2019-01-30] MEDS: PANTOPRAZOLE 40 MG TABLET PO ×2 (09:21→21:53)
--- NOTE | 2019-01-30 10:20 | PT.IPTN ---
Current Diagnoses Spinal stenosis, lumbar region without neurogenic claudication (01/28/19) Other intervertebral disc displacement, lumbar region (01/28/19) Surgery Performed Operation Date: 01/28/19 12:15 Actual Procedures p L4-5 TLIF - Ying Browne MD Physical Therapy Treatment Note M2 PT-IP Current Condition Start: 01/29/19 12:34 Freq: NEEDED Status: Active Protocol: Document 01/29/19 11:45 DLM (Rec: 01/29/19 12:54 DLM [email or web address]) Physical Therapy Current Condition Current Condition Evaluation Date 01/29/19 Treatment Diagnosis L4-5 TLIF Onset Date 01/28/19 Precautions Lumbar Precautions Log Roll No Twisting Limit Bending Lifting Restriction of 10 lbs Gait Belt above Incisional Area M3 PT-IP Subjective Start: 01/29/19 12:34 Freq: NEEDED Status: Active Protocol: Document 01/30/19 10:20 DLM (Rec: 01/30/19 12:33 DLM [id number]) Subjective Physical Therapy Visit Type Type Treatment Note Visit Start Time 09:45 Visit Stop Time 10:20 Total Visit Minutes 35 Number of WORLD RENOWNED CHEF AND RESTAURANT OWNER Visits 0 Physical Therapy Visit Comments Patient Comments Her pain is better today. She has been unable to work due to her back pain. 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 Patient Goals return home Therapy Pain Assessment Pain When Pain Assessed During Mobility Pain Present Pain Present Pain Reported Location Back Intensity 7 Scale Used Numeric (1 - 10) Description Aching Pain Behaviors Guarding Pain Management Techniques Re-positioning Timing of Activity with Medications M4 PT-IP Mobility and Gait Start: 01/29/19 12:34 Freq: NEEDED Status: Active Protocol: Document 01/30/19 10:20 DLM (Rec: 01/30/19 12:33 DLM [id number]) PT-Bed Mobility Assessment Rolling Type of Rolling Log Rolling Roll to Left Level of Assist Standby Assistance Supine to Sit Supine to Sit Standby Assistance Sit to Supine Sit to Supine Standby Assistance Scooting Scooting to Edge of Bed Standby Assistance PT-Transfer Assessment Sit to and From Stand Sit to and from Stand Standby Assistance Use of Upper Extremities Equipment Transfer Assistive Device Gait Belt Front Wheeled Walker Transfers Transfer Destination Bedside Commode Transfer Technique Stand Step Pivot Transfer Ability Level of Assist Standby Assistance Use of Upper Extremities Comments Mobility Comments she develops increased right shoulder pain if she pushes/ pulls too much with right UE Gait Assessment Gait Gait Assistance Required: Standby Assistance Distance (Feet) 90 Assistive Devices Assistive Device Gait Belt Front Wheeled Walker Gait Deviations General Gait Pattern Decreased Stride Length Flexed Trunk Factors Limiting Gait Function Factors Limiting Gait Function Decreased Activity Tolerance Decreased Strength Pain Comments Gait Comments she reports increased pain during ambulating, tremors noted today during mobility PT-Balance Assessment Sitting Balance and Reactions Static Sitting Balance Ability Good Dynamic Sitting Balance Ability Good Standing Balance and Reactions Static Standing Balance Ability Good Dynamic Standing Balance Ability Fair Device Used FWW M5 PT-IP Objective Assessments Start: 01/29/19 12:34 Freq: NEEDED Status: Active Protocol: Document 01/29/19 15:00 DLM (Rec: 01/29/19 17:19 DLM [email or web address]) Orientation Orientation/Cognition Level of Alertness Alert Orientation Name Age Birthday Month Date Year Day of Week Place Situation Language Function Ability No Deficits Noted Safety Awareness Understands Safety Issues Memory Description No Deficits Noted M6 PT-IP Treatment Start: 01/29/19 12:34 Freq: NEEDED Status: Active Protocol: Document 01/30/19 10:20 DLM (Rec: 01/30/19 12:33 DLM [id number]) Physical Therapy Treatment Exercises Exercises Ankle Pumps Education Education Provided Precautions Safety M7 PT-IP Assessment and Plan Start: 01/29/19 12:34 Freq: NEEDED Status: Active Protocol: Document 01/30/19 10:20 DLM (Rec: 01/30/19 12:33 DLM [id number]) PT Summary Assessment and Plan Summary Impairments Pain ROM Strength Balance Bed Mobility Transfers Gait Activity Tolerance Progress Towards Goals Slow Progress due to Pain Assessment Summary Benita reports her pain is over-all better today. She reports feeling shaky and sweaty today. She tolerated a short distance of gait in the port[place] which is an improvement from yesterday. Pt fatigued after gait and returned to bed to rest. She continues to want to discharge home with assist from friends. She is not ready for discharge today. Goals Bed Mobility Goal Independent Transfer Goal Independent Front Wheeled Walker Gait Goal Independent Front Wheel Walker Gait Distance 100 feet Other Goals Up and down 2 steps with min assist. Days to Meet Goals 3 Frequency of Treatment Frequency Of Treatment Twice a Day Treatment Plan Physical Therapy Treatment Plan Bed Mobility Training Transfer Training Gait Training Therapeutic Exercise Balance Retraining Post Op Education Discharge Planning Hot or Cold Pack Other Recommendations and Next Treatment encourage relaxation Focus techniques to manage her pain Recommendations To Nursing Amount of Assist Needed 1 Person Assist Discharge Recommendations PT Discharge Recommendations Home with Assistance Other Discharge Recommendations continue to assess for discharge planning Equipment Needed for Home Before possible FWW Discharge
--- NOTE | 2019-01-30 10:59 | P.PN_ITS ---
Subjective Date Patient Seen: 01/30/19 Time Patient Seen: 10:57 Interval history: Patient is status post T lift by Dr. Cruz. Patient is doing better today. Patient was having pain issues yesterday as well as some hypotension. Unable to do much with physical therapy yesterday. Patient pain is much better controlled today. And was able to get up and move around a little bit with physical therapy this morning. Exam Vital Signs (past 8 hours): - 01/30/19 08:00 Temperature 97.9 F Pulse Rate 68 Respiratory Rate 18 Blood Pressure 102/67 Pulse Oximetry 95 Oxygen Delivery Method Room Air Oxygen Flow Rate 0 Narrative Exam Narrative: Patient's dressing is clean and dry. She has positive dorsi flexion and plantar flexion of the toes and ankles. 5/5 strength in dorsiflexion bilaterally. Nontender to palpation of the posterior aspect of the calves bilaterally. Palpable pedal pulses. Objective Labs Result Diagrams: 01/29/19 08:15 Assessment & Plan Post-op Postoperative Procedures Operation Date: 01/28/19 12:15 Actual Procedures Side Surgeon p L4-5 TLIF Ying Browne MD Postoperative status: doing well Postoperative status narrative: Patient doing better this morning. Still need a little more work with therapy before discharge. Will plan on discharging the patient tomorrow as long as she is ambulating well. Postoperative plan: routine post-op care Time Spent With Patient less than 15 minutes Quality VTE Deep Vein Thrombosis/Pulmonary Embolism Present on Admission: No
[2019-01-30 12:19] VITALS: BP 109/59; PULSE 69; RESP 16; TEMP 36.7; O2SAT 98
--- NOTE | 2019-01-30 15:24 | PT.IPTN ---
Current Diagnoses Spinal stenosis, lumbar region without neurogenic claudication (01/28/19) Other intervertebral disc displacement, lumbar region (01/28/19) Surgery Performed Operation Date: 01/28/19 12:15 Actual Procedures p L4-5 TLIF - Ying Browne MD Physical Therapy Treatment Note M2 PT-IP Current Condition Start: 01/29/19 12:34 Freq: NEEDED Status: Active Protocol: Document 01/29/19 11:45 DLM (Rec: 01/29/19 12:54 DLM [email or web address]) Physical Therapy Current Condition Current Condition Evaluation Date 01/29/19 Treatment Diagnosis L4-5 TLIF Onset Date 01/28/19 Precautions Lumbar Precautions Log Roll No Twisting Limit Bending Lifting Restriction of 10 lbs Gait Belt above Incisional Area M3 PT-IP Subjective Start: 01/29/19 12:34 Freq: NEEDED Status: Active Protocol: Document 01/30/19 15:24 DLM (Rec: 01/30/19 17:23 DLM [id number]) Subjective Physical Therapy Visit Type Type Treatment Note Visit Start Time 14:50 Visit Stop Time 15:24 Total Visit Minutes 34 Number of SCALE TANK OPERATOR Visits 0 Physical Therapy Visit Comments Patient Comments She does not feel ready to go home yet, pain is better than yesterday, still getting cramping Patient Goals discharge home Therapy Pain Assessment Pain When Pain Assessed After Treatment Pain Present Pain Present Pain Reported Location Back Intensity 7 Scale Used Numeric (1 - 10) Description Aching Cramping Pain Behaviors Facial Grimacing Guarding Pain Management Techniques Re-positioning Timing of Activity with Medications M4 PT-IP Mobility and Gait Start: 01/29/19 12:34 Freq: NEEDED Status: Active Protocol: Document 01/30/19 15:24 DLM (Rec: 01/30/19 17:23 DLM [id number]) PT-Bed Mobility Assessment Rolling Type of Rolling Log Rolling Roll to Left Level of Assist Standby Assistance Supine to Sit Supine to Sit Standby Assistance Sit to Supine Sit to Supine Standby Assistance Scooting Scooting to Edge of Bed Standby Assistance PT-Transfer Assessment Sit to and From Stand Sit to and from Stand Standby Assistance Use of Upper Extremities Equipment Transfer Assistive Device Gait Belt Front Wheeled Walker Transfers Transfer Destination Bed Toilet Transfer Technique Stand Step Pivot Transfer Ability Level of Assist Standby Assistance Use of Upper Extremities Gait Assessment Gait Gait Assistance Required: Standby Assistance Distance (Feet) 100 Assistive Devices Assistive Device Gait Belt Front Wheeled Walker Gait Deviations General Gait Pattern Decreased Stride Length Flexed Trunk Factors Limiting Gait Function Factors Limiting Gait Function Decreased Activity Tolerance Decreased Strength Pain Comments Gait Comments she reports increased back pain during gait, she continue to have tremors, also noted her skin appears more pink this afternoon PT-Balance Assessment Sitting Balance and Reactions Static Sitting Balance Ability Good Dynamic Sitting Balance Ability Good Standing Balance and Reactions Static Standing Balance Ability Good Dynamic Standing Balance Ability Fair Device Used FWW M5 PT-IP Objective Assessments Start: 01/29/19 12:34 Freq: NEEDED Status: Active Protocol: Document 01/29/19 15:00 DLM (Rec: 01/29/19 17:19 DLM [email or web address]) Orientation Orientation/Cognition Level of Alertness Alert Orientation Name Age Birthday Month Date Year Day of Week Place Situation Language Function Ability No Deficits Noted Safety Awareness Understands Safety Issues Memory Description No Deficits Noted M6 PT-IP Treatment Start: 01/29/19 12:34 Freq: NEEDED Status: Active Protocol: Document 01/30/19 15:24 DLM (Rec: 01/30/19 17:23 DLM [id number]) Physical Therapy Treatment Exercises Exercises Ankle Pumps Education Education Provided Precautions Safety M7 PT-IP Assessment and Plan Start: 01/29/19 12:34 Freq: NEEDED Status: Active Protocol: Document 01/30/19 15:24 DLM (Rec: 01/30/19 17:23 DLM [id number]) PT Summary Assessment and Plan Summary Impairments Pain ROM Strength Balance Bed Mobility Transfers Gait Activity Tolerance Progress Towards Goals Slow Progress due to Pain Assessment Summary Benita shows improved pain control over-all today with less crying during mobility. Her pain still limits her distance of gait even with the fWW. She continues to slow improve. She needs to be able to do stairs before she goes home. Goals Bed Mobility Goal Independent Transfer Goal Independent Front Wheeled Walker Gait Goal Independent Front Wheel Walker Gait Distance 100 feet Other Goals Up and down 2 steps with min assist. Days to Meet Goals 3 Frequency of Treatment Frequency Of Treatment Twice a Day Treatment Plan Physical Therapy Treatment Plan Bed Mobility Training Transfer Training Gait Training Therapeutic Exercise Balance Retraining Post Op Education Discharge Planning Hot or Cold Pack Other Recommendations and Next Treatment encourage relaxation Focus techniques to manage her pain Recommendations To Nursing Amount of Assist Needed 1 Person Assist Discharge Recommendations PT Discharge Recommendations Home with Assistance Equipment Needed for Home Before FWW, her friend may be getting Discharge one but she is not sure
[2019-01-30 15:41] VITALS: BP 96/61; PULSE 77; RESP 18; TEMP 37.1; O2SAT 96
[2019-01-30] MEDS: hydrOXYzine pamoate 25 MG CAPSULE PO ×2 (16:08→19:47)
[2019-01-30] MEDS: ACETAMINOPHEN 325 MG TABLET 650 MG PO (19:49)
[2019-01-30 20:00] VITALS: BP 118/73; PULSE 78; RESP 18; TEMP 36.8
[2019-01-30] MEDS: CITALOPRAM 20 MG TABLET 40 MG PO (21:52)
[2019-01-30] MEDS: TRAZODONE 100 MG TABLET PO (21:53)
[2019-01-30] MEDS: SENNOSIDES 8.6 MG TABLET 17.2 MG PO (21:55)
--- NOTE | 2019-01-30 22:01 | PC.NURSE ---
Pt up with PT beginning of shift, ambulating hallways x 2. rating pain throughout shift 6-05/18, medicated with oxycodone 15mg Q-3hrs, and vistaril 25mg Q-4hr, and 650mg tylenol at 194. Low back drsg with bottom right small area with serosang shadow drainage, otherwise CDI. 2200- Pt crying and rating pain 8/10, medicated with oxycodone 15mg PO. dexamethasone was DC'd at 1400 today. Pt concerned will not be able to go home tomorrow due to uncontrolled pain.
[2019-01-31 01:03] VITALS: BP 104/70; PULSE 62; RESP 16; TEMP 36.6; O2SAT 98
[2019-01-31] MEDS: OXYCODONE IR 5 MG TABLET 15 MG PO ×4 (01:46→12:40)
[2019-01-31] MEDS: LEVOTHYROXINE 25 MCG TABLET PO (06:28)
[2019-01-31 06:59] VITALS: BP 113/68; PULSE 63; RESP 16; TEMP 36.5; O2SAT 99
[2019-01-31 08:17] VITALS: BP 98/69; PULSE 59; RESP 20; TEMP 36.6; O2SAT 98
[2019-01-31] MEDS: SUCRALFATE 1 GM TABLET PO ×2 (09:31→12:41)
--- NOTE | 2019-01-31 09:31 | PC.NURSE ---
01/31/19 Patient's [facility] blood sugar was not checked until after she ate at 0930 by mistake. The result was 131.
[2019-01-31] MEDS: PANTOPRAZOLE 40 MG TABLET PO (09:32)
[2019-01-31] MEDS: lamoTRIgine 100 MG TABLET PO (09:32)
[2019-01-31] MEDS: ACETAMINOPHEN 325 MG TABLET 650 MG PO (09:33)
[2019-01-31] MEDS: DOCUSATE 100 MG CAPSULE PO (09:33)
--- NOTE | 2019-01-31 09:38 | OT.IP.TRT ---
Current Diagnoses Spinal stenosis, lumbar region without neurogenic claudication (01/28/19) Other intervertebral disc displacement, lumbar region (01/28/19) Surgery Performed Operation Date: 01/28/19 12:15 Actual Procedures p L4-5 TLIF - Ying Browne MD Occupational Therapy Treatment Note M2 OT-IP Current Condition Start: 01/29/19 15:38 Freq: Status: Active Protocol: Document 01/29/19 14:53 PJM (Rec: 01/29/19 15:59 PJM [id number]) Occupational Therapy Current Condition Current Condition Evaluation Date 01/29/19 Treatment Diagnosis decreased self care, functional mobility S/P L4-5 TLIF Diagnosis Onset Date 01/28/19 Post Operative Precautions Lumbar Precautions Log Roll No Twisting Limit Bending Lifting Restriction of 10 lbs Gait Belt above Incisional Area M3 OT- IP Subjective and Pain Start: 01/29/19 15:38 Freq: Status: Active Protocol: Document 01/31/19 09:27 [facility] (Rec: 01/31/19 09:38 [facility] [id number]) OT- Subjective Occupational Therapy Visit Type Type Treatment Note Visit Start Time 09:00 Visit Stop Time 09:30 Total Visit Minutes 30 Occupational Therapy Visit Comments Patient Comments Pt agreeable to get up for Ot treatment. OT Pain Assessment Pain When Pain Assessed At Rest Pain Present Pain Present Pain Reported Location Rt shoulder Intensity 6 Scale Used Numeric (1 - 10) M4 OT- IP ADL's Start: 01/29/19 15:38 Freq: Status: Active Protocol: Document 01/31/19 09:27 [facility] (Rec: 01/31/19 09:38 [facility] [id number]) OT ADL-Dressing General Eval Lower Body Dressing Ability Standby Assistance Areas Needing Assistance Socks Assistive Devices Dressing Assistive Devices Hogshead Weigher Sock Aid Comments OT Dressing Comments Able to educate pt for LB dressing with sock aid and paralegal legal secretary, pt able to show good understanding and safety. Recommended pt to attach paralegal legal secretary to FWW. Pt states wears flip flops and recommended to wear well fitting slip on shoes instead. OT ADL-Toileting General Evaluation Toileting Ability Independent Comments OT Toileting Comments Pt to look into getting toilet aid. OT ADL-Bathing Comments OT Bathing Comments Pt wawnting to shower but after doing steps with PT. Pt states has one step to get to tub/shower, but able to stand and sit back to tub edge and then get into the tub. Suggested pt to have assist at home especially for showering needs. Pt also looking to pickling solution maker a shower chair. Nursing notified that pt wants to shower today. M5 OT- IP IADL's Start: 01/29/19 15:38 Freq: Status: Active Protocol: Document 01/29/19 14:53 PJM (Rec: 01/29/19 15:59 PJM [id number]) OT-Instrumental Activities of Daily Living Deficits IADL Deficits Identified Deficits Home Safety Awareness Awareness of Need for Assistance at Home Good Awareness Ability to Problem Solve Emergency Able to Problem Solve Situations Medication Management Medication Management No Deficits Identified Money Management Money Management No Deficits Identified Meal Preparation Meal Preparation Caregiver Provides Assist Meal Preparation Comments pt states friends can assist PRN after d/c until pt able Underwear Hemmer Underwear Hemmer Caregiver Provides Assist Underwear Hemmer Comments pt states friends can assist PRN after d/c until pt able Driving Driving Caregiver Provides Assist Driving Comments pt states friends can assist PRN after d/c until pt able M6 OT- IP Functional Cognition Start: 01/29/19 15:38 Freq: Status: Active Protocol: Document 01/31/19 09:27 [facility] (Rec: 01/31/19 09:38 [facility] [id number]) Cognitive Factors Limiting Selfcare Function Cognitive Ability Level of Alertness Alert Patient Orientation Name Age Birthday Month Date Year Day of Week Place Situation Attention Span Ability Capable of Focused Attention Capable of Sustained Attention Ability to Follow Commands Able to Follow Multi-Step Commands Memory Description No Deficits Noted Safety Awareness No Deficits Noted Problem Solving Ability No deficits Noted Cognitive Comments Cognitive Assessment Comments Pt able to follow all back precautions appropriately for ADl seen today. M7 OT- IP Mobility and Balance Start: 01/29/19 15:38 Freq: Status: Active Protocol: Document 01/31/19 09:27 [facility] (Rec: 01/31/19 09:38 [facility] [id number]) OT- Bed Mobility Assessment Rolling Type of Rolling Roll to Left Level of Assistance Independent Supine to Sit Supine to Sit Assist Independent Bedrails Scooting Scooting to Edge of Bed Independent OT-Transfer Assessment Sit to and From Stand Sit to and from Stand Standby Assistance Transfers Transfer Ability Standby Assistance Technique Transfer Destination Chair Toilet Devices Transfer Assistive Devices Gait Belt Front Wheeled Walker Comments Mobility Comments SBA for transfers and walking with FWW. Pt states at home bed in set up to get out form the right side however she has a bad right shoulder, therefore recommended that pt put pillow at the head of the bed so able to get in and out on the left side. OT- Balance Assessment Sitting Balance and Reactions Static Sitting Balance Ability Normal Standing Balance and Reactions Static Standing Balance Ability Good M8 OT- IP Objective Assessments Start: 01/29/19 15:38 Freq: Status: Active Protocol: Document 01/29/19 14:53 PJM (Rec: 01/29/19 15:59 PJM [id number]) OT Gross Range of Motion Upper Extremity Range of Motion Assessment Right Impaired ROM Impairments R shoulder scaption limited to ~70 degrees by pain with shoulder surgery pending. Pt is scheduled for R shoulder arthroscopic debridement of partial rotator cuff tear in February. Distal AROM WFL in RU. LUE AROM WFL. OT Strength Upper Extremity Strength Assessment Within Functional Limits Hand Promotions Producer Strength Hand Dominance Right Comments Strength Comments R shoulder NT due to pain. OT- Coordination Assessment Comments Coordination Comments WFL BUE OT-Muscle Tone Assessment Muscle Tone WNL Yes OT Sensation Assessment Comments Summary Comments Pt reports some numbness/ tingling of fingertips in R hand. Otherwise BUE WNL. M9 OT- IP Assessment and Plan Start: 01/29/19 15:38 Freq: Status: Active Protocol: Document 01/31/19 09:27 [facility] (Rec: 01/31/19 09:38 [facility] [id number]) OT Summary Assessment and Plan Potential Rehabilitation Potential Good Analytic Complexity at Evaluation Low Summary OT Impairments Pain Functional Mobility Grooming Dressing Toileting Bathing Toilet Transfers Shower Transfers Progress Towards Goals Slow Progress due to Pain Assessment Summary Pt doing well with incorporation of back precautions for needs of ADl's and functional mobility. Main barrier is pain at this time and still recommend pt to have assist at home for IADl and bathing needs. In addition to be mindful of her dogs at home especially at night. Pt to go home when medically stable with assist. Goals Grooming Goal Independent Dressing Goal Independent Long Handled Shoe Horn Hogshead Weigher Sock Aid Toileting Goal Independent Toilet Paper Aid Bathing Goal Standby Assistance Toilet Transfer Goal Independent Standard Toilet Shower Transfer Goal Standby Assistance Tub/Shower Combination Shower Chair Patient/Caregiver Education Goal Demonstrate Post-Op Precautions Demonstrate Energy Conservation and Pacing Caregiver Independent Assisting Patient Days to Meet Goals 1 Frequency of Treatment Frequency Of Treatment Once a Day Treatment Plan OT Treatment Plan ADL Training Functional Mobility Patient/Family Education Discharge Planning Discharge Recommendations OT Discharge Recommendations Home with Assistance Home Equipment Needs shower seat, toilet paper aid (pt plans to order these online),FWW
[2019-01-31] MEDS: SODIUM CHLORIDE 0.9% FLUSH 10 ML IV (09:53)
--- NOTE | 2019-01-31 10:38 | PM.DS.1 ---
History of Present Illness Date Patient Seen: 01/31/19 Time Patient Seen: 07:38 Chief complaint: Translaminar Interbody Fusion/Laminotomy Narrative: Patient has been having chronic back pain and worsening lumbar radiculopathy. Patient had prior lumbar microdiskectomy surgery with good pain relief. Patient has been having worsening radiculopathy over the last 2 month. Repeat MRI to identify recurrence disc herniation at L4-5 level. Patient failed multiple conservative management with worsening pain weakness and numbness in her lower extremity. Patient has been having difficulty performing activity of daily living. After discussing risks benefits of treatment options, patient elected proceed with surgery. Discharge Providers Date of admission: 01/28/19 09:17 Discharge Date: 01/31/19 Primary care physician: ISMAEL Aviles Consults: 01/17/19 13:39 Consult to Respiratory Therapy Evaluate & Treat Comment: STOP BANG assess + TLIF 01/28/19 Physician Instructions: Evaluate and treat 01/28/19 16:26 Consult to Occupational Therapy Evaluate & Treat Comment: Physician Instructions: Evaluate and treat Consult to Physical Therapy Evaluate & Treat Comment: Physician Instructions: Evaluate and Treat 01/28/19 18:25 Consult to Dietitian, Adult Routine Comment: Reason For Exam: weight loss d/t nausea r/t pain 01/29/19 10:14 Consult to Occupational Therapy Evaluate & Treat Comment: Physician Instructions: Evaluate and treat Discharge provider: Norah Morales PA-C Summary Discharge Diagnosis: s/p TLIF Hospital Course: Benita was admitted for lumbar fusion with Dr. Browne, and she consented to procedure. On postop day 3 she was ready to DC home. She had significant pain throughout her stay, she was provided with the 24 hr burst of steroids which helped. Her pain is well controlled with oxycodone 15 mg every 3 hr, and Vistaril. She was eating and voiding without difficulty or assistance. She has worked with physical therapy throughout her stay. Status at Discharge Functional status at discharge: uses cane/walker Exam Vital Signs (past 8 hours): - 01/31/19 06:59 01/31/19 08:17 Temperature 97.7 F 97.8 F Pulse Rate 63 59 L Respiratory Rate 16 20 Blood Pressure 113/68 98/69 Pulse Oximetry 99 98 Oxygen Delivery Method Room Air Oxygen Flow Rate 0 Narrative Exam Narrative: Patient is sitting up in bed in no acute distress. She is alert and oriented x3. Calves are soft, compressible, nontender bilaterally. Pulses are symmetrical. Sensation intact light touch throughout bilateral lower extremities. Her pain is well controlled right now as nursing gave her a medication about an hour ago. She has worked with Physical therapy this morning. Objective Labs Result Diagrams: 01/29/19 08:15 Discharge Plan Discharge Plan Patient Disposition: Home Discharge comment: DC with coversite dressing Discharge Med Rec/Prescriptions Prescriptions: New acetaminophen 325 mg Tablet 650 mg PO Q6HR PRN (Reason: Pain, Mild (1-3)) Qty: 60 RF: 0 docusate sodium 100 mg Capsule 100 mg PO BID Qty: 60 RF: 0 hydroxyzine pamoate 25 mg Capsule 25 mg PO Q4HR PRN (Reason: Nausea And Vomiting) Qty: 60 RF: 0 oxycodone 5 mg capsule 5 mg PO Q4-6H PRN (Reason: pain) Qty: 90 RF: 0 Continued omeprazole 40 mg Capsule,Delayed Release(Dr/Ec) 40 mg PO BID RF: 0 citalopram 20 mg Tablet 40 mg PO BEDTIME RF: 0 dextroamphetamine-amphetamine 20 mg Tablet 20 mg PO DAILY RF: 0 lamotrigine 100 mg Tablet Extended Release 24hr 100 mg PO BID RF: 0 spironolactone 25 mg Tablet 25 mg PO BID RF: 0 levothyroxine 25 mcg Tablet 25 mcg PO QAM RF: 0 trazodone 100 mg Tablet 100 mg PO BEDTIME RF: 0 hydrocodone-acetaminophen 5-325 mg Tablet 1 tab PO Q6H PRN (Reason: pain) RF: 0 sucralfate 1 gram Tablet 1 g PO Q6H RF: 0 Follow up/Referrals: Ying Browne MD [Physician] - Provider Discharge Instructions Diet: Diet as Tolerated Activity: No excessive bending, lifting, or twisting Skin/Wound/Dressing Care Report to your healthcare provider any signs of infection, such as:: chills, fever and increased pain Dressing: as needed Visit Report/Discharge Packet Instructions: DI for Transforaminal Lumbar Interbody Fusion Discharge Data Primary Care Provider: Johanne Shirley Attending Provider: Ying Browne Admit Date/Time: 01/28/19 09:17 Quality VTE Deep Vein Thrombosis/Pulmonary Embolism Present on Admission: No
[2019-01-31 12:44] VITALS: BP 123/66; PULSE 83; RESP 22; TEMP 37.2; O2SAT 97
--- NOTE | 2019-01-31 12:56 | PT.IPTN ---
Current Diagnoses Spinal stenosis, lumbar region without neurogenic claudication (01/28/19) Other intervertebral disc displacement, lumbar region (01/28/19) Surgery Performed Operation Date: 01/28/19 12:15 Actual Procedures p L4-5 TLIF - Ying Browne MD Physical Therapy Treatment Note M2 PT-IP Current Condition Start: 01/29/19 12:34 Freq: NEEDED Status: Active Protocol: Document 01/29/19 11:45 DLM (Rec: 01/29/19 12:54 DLM [id number]) Physical Therapy Current Condition Current Condition Evaluation Date 01/29/19 Treatment Diagnosis L4-5 TLIF Onset Date 01/28/19 Precautions Lumbar Precautions Log Roll No Twisting Limit Bending Lifting Restriction of 10 lbs Gait Belt above Incisional Area M3 PT-IP Subjective Start: 01/29/19 12:34 Freq: NEEDED Status: Active Protocol: Document 01/31/19 09:18 LRN (Rec: 01/31/19 12:56 LRN [id number]) Subjective Physical Therapy Visit Type Type Treatment Note Visit Start Time 09:18 Visit Stop Time 09:41 Total Visit Minutes 23 Number of TECHNICAL TRAINING INSTRUCTOR Visits 0 Physical Therapy Visit Comments Patient Comments Better than yesterday. Able to get OOB on her own. Patient Goals discharge home M4 PT-IP Mobility and Gait Start: 01/29/19 12:34 Freq: NEEDED Status: Active Protocol: Document 01/31/19 09:18 LRN (Rec: 01/31/19 12:56 LRN [id number]) PT-Bed Mobility Assessment Rolling Type of Rolling Log Rolling Roll to Right Level of Assist Independent Sit to Supine Sit to Supine Independent PT-Transfer Assessment Sit to and From Stand Sit to and from Stand Independent Equipment Transfer Assistive Device Gait Belt Front Wheeled Walker Transfers Transfer Destination Bed Chair Transfer Technique Log roll into bed. Chair>amb> bed. Transfer Ability Level of Assist Independent Standby Assistance Comments Mobility Comments Pt moves slowly but is stable and safe for transfers into bed and from chair. Gait Assessment Gait Gait Assistance Required: Independent Distance (Feet) 100 Assistive Devices Assistive Device Gait Belt Front Wheeled Walker Gait Deviations General Gait Pattern Decreased Stride Length Factors Limiting Gait Function Factors Limiting Gait Function Decreased Activity Tolerance Decreased Strength Pain Comments Gait Comments After stair ambulation, back pain increased with mobility. Stair Climbing Assessment Evaluation Level of Assist On Stairs Contact Guard Assistance Devices Stair Climbing Assistive Devices Straight Cane Technique/Endurance Stair Climbing Direction Ascend and Descend Stair Climbing Technique Step Over Step Number of Steps Climbed 4 Query Text: Stair Climbing Set # Repetitions (reps) 1 Comments Stair Climbing Comments Pt unassisted on R side due to reported history of R. RC tear injury. Pt is unsteady with stair ambulation due to pain in back and may need hand held assist on R side for safety with gait. PT-Balance Assessment Sitting Balance and Reactions Static Sitting Balance Ability Normal Dynamic Sitting Balance Ability Good Standing Balance and Reactions Static Standing Balance Ability Good Dynamic Standing Balance Ability Fair Device Used FWW M5 PT-IP Objective Assessments Start: 01/29/19 12:34 Freq: NEEDED Status: Active Protocol: Document 01/29/19 15:00 DLM (Rec: 01/29/19 17:19 DLM [id number]) Orientation Orientation/Cognition Level of Alertness Alert Orientation Name Age Birthday Month Date Year Day of Week Place Situation Language Function Ability No Deficits Noted Safety Awareness Understands Safety Issues Memory Description No Deficits Noted M6 PT-IP Treatment Start: 01/29/19 12:34 Freq: NEEDED Status: Active Protocol: Document 01/31/19 09:18 LRN (Rec: 01/31/19 12:56 LRN [id number]) Physical Therapy Treatment Exercises Exercises Ankle Pumps Seated Knee Flexion/Extension Education Education Provided Precautions Safety M7 PT-IP Assessment and Plan Start: 01/29/19 12:34 Freq: NEEDED Status: Active Protocol: Document 01/31/19 09:18 LRN (Rec: 01/31/19 12:56 LRN [id number]) PT Summary Assessment and Plan Potential Rehabilitation Potential Good Summary Impairments Pain Strength Balance Gait Activity Tolerance Assessment Summary Pt appears safe and independent getting into bed and with gait on level with FWW. Pt was sitting in chair at start of therapy. She has difficulty with stair ambulation due to pain making her unsteady. Goals Bed Mobility Goal Independent Transfer Goal Independent Front Wheeled Walker Gait Goal Independent Front Wheel Walker Gait Distance 100 feet Other Goals Up and down 2 steps with min assist. Days to Meet Goals 3 Frequency of Treatment Frequency Of Treatment Twice a Day Treatment Plan Physical Therapy Treatment Plan Bed Mobility Training Gait Training Therapeutic Exercise Other Recommendations and Next Treatment Assess transfers out of bed Focus for independence. Stair training with Hand held assist on the right. Encourage relaxation techniques for pain management. Recommendations To Nursing Amount of Assist Needed Independent Standby Assistance 1 Person Assist Discharge Recommendations Equipment Needed for Home Before FWW, check if pt has one. Discharge
--- NOTE | 2019-01-31 13:37 | PC.NURSE ---
Discharge: Late entry (left approx 1300) IV dc'd intact. Placed new Coversite dressing just prior to discharge. Instructed to leave on until follow up appt, no swimming/baths or hot tubs. Given extra dressings but instructed only to use if the old one comes off or becomes soiled/saturated for some reason. Reviewed all instructions thoroughly and patient verbalized understanding. Given scripts for Vistaril and Oxycodone. All personal belongings sent with patient. Assisted into wheelchair and taken out to private vehicle by nursing staff.
== END 2019-01-31 13:41 | disposition home or self-care (01) | DRG 454 ==
PROVIDERS: Physician Assistant; Admitting Provider Orthopaedic Surgery Orthopaedic Surgery of the Spine; PCP Nurse Practitioner Primary Care; Visit Provider Orthopaedic Surgery Orthopaedic Surgery of the Spine
PROC: 0SG00AJ Fusion of Lumbar Vertebral Joint with Interbody Fusion Device, Posterior Approach, Anterior Column, Open Approach (ICD-10-PCS; principal; 2019-01-28 12:15)
DX: M48.061 Spinal stenosis, lumbar region without neurogenic claudication (principal); Z68.41 Body mass index [BMI] 40.0-44.9, adult; M51.26 Other intervertebral disc displacement, lumbar region; E66.9 Obesity, unspecified; E03.9 Hypothyroidism, unspecified; K21.9 Gastro-esophageal reflux disease without esophagitis; E11.9 Type 2 diabetes mellitus without complications; F32.9 Major depressive disorder, single episode, unspecified; I95.9 Hypotension, unspecified; M54.9 Dorsalgia, unspecified
CPT/HCPCS: 36415; 72100; 76000; 82962; 85014; 85018; 97116; 97162; 97165; 97530; 97535; C1776; C9290; J0131; J0330; J0690; J1100; J1170; J2060; J2250; J2405; J2704; J3010; J3410

== ENCOUNTER 2019-02-17 05:33 | Day surgery (SDC) | payer OTHER, SELFPAY ==
[2018-11-03 08:15] VITALS: BMI 30.2
[2019-01-28 18:13] VITALS: BMI 37.6
[2019-02-09 09:28] VITALS: BMI 30.2
[2019-02-17] VITALS (11 sets, daily range): BP systolic 101–140; BP diastolic 51–78; PULSE 75–96; RESP 11–16; TEMP 36.1–37.3; O2SAT 93–97; BMI 37.3
[2019-02-17] MEDS: LACTATED RINGERS 1,000 ML 42 ML IV ×2 (07:23→09:20)
[2019-02-17] MEDS: APREPITANT 40 MG CAPSULE PO (07:31)
[2019-02-17] MEDS: fentaNYL 100 MCG/2 ML INJ 50 MCG IV ×4 (07:42→10:12)
[2019-02-17] MEDS: MIDAZOLAM 2 MG/2 ML VIAL IV (07:42)
--- NOTE | 2019-02-17 07:42 | PM.PREOP ---
Pre-operative Note Interval Note History & Physical reviewed/Exam performed by Physician: Yes Changes to H&P: No
--- NOTE | 2019-02-17 07:55 | SUR.PREOP ---
Block start time 0744[] . Monitoring initiated and maintained throughout procedure. Oxygen and medications given per anesthesiologist instructions. Patient remained stable throughout procedure, no adverse reactions noted. Block end time [].0752
[2019-02-17] MEDS: CEFAZOLIN 2 GM/100 ML FROZ.PIGGY IV (07:59)
--- NOTE | 2019-02-17 08:33 | SUR.OPER ---
Beach chair [facility]. Lower body on padded OR bed. Head in foam padded head cradle, secured with straps. Non-operative arm secured <90 degrees abduction. Pillow under knees. Safety belt at thigh. Cloth tape over blanket over lower legs.
[2019-02-17] MEDS: SODIUM CHLORIDE IRRIG SOLUTION 3,000 ML, EPINEPHrine 1 MG IRR (08:43)
--- NOTE | 2019-02-17 09:02 | PM.PROC.1 ---
Procedures Date/Time Date of procedure: 02/17/19 Time of procedure: 07:44 Nerve Block Time out performed: Yes Local anesthetic used: other (Lido 1Local infiltration with 25g) Location of anesthetic used: Right Interscalene Brachial Plexus Amount of anesthesia used (mL): 15 (Ropivacaine 0.5%) Nerve blocks: brachial plexus (interscalene, right) Procedure successful: Yes Patient tolerated procedure: well Complications: none Additional comments: Following final discussion with surgeon and signing consent, routine monitors and O2 per NC applied. Sterile technique, Nerve stimulator and ultrasound visualization used. Lido 1% local using 25g. 100mm 22g Stimex needle used for block. Right biceps twitch to .6 mAmp. Negative aspiration and test dose. Total volume 15ml of Ropivacaine 0.5%. Patient tolerated well with titrated IV sedation using Fentanyl 100mcg and Midazolam 2mg.
[2019-02-17] MEDS: LIDOCAINE 1% W/EPI INJ 20 ML INJ (09:11)
[2019-02-17] MEDS: BUPIVACAINE 0.25% W/ EPI 30 ML VIAL INJ (09:19)
--- NOTE | 2019-02-17 09:25 | PM.OP.1 ---
Operative Date/Time/Diagnoses Date of procedure: 02/17/19 Time of procedure: 08:00 Pre-op diagnosis: Right rotator cuff tear Post-op diagnosis: same Procedure & Clinicians Procedure: Arthroscopic subacromial decompression, extensive debridement, rotator cuff repair. Same procedure as scheduled: Yes Indications: 53-year-old female with rotator cuff pathology involving the right shoulder that had been unresponsive to conservative treatment. Surgeon: Jung Joseph Director Emergency Department: Ramandeep Wahl Anesthesia Type: General and Peripheral nerve block Operative Notes Findings: Patient had early onset arthritic changes to the glenohumeral joint. extensive labral fraying and degenerative tearing circumferentially. No sign of any Bankart tear. Type 1 slap tear. No extension into the bicipital anchor. Quite a bit of articular sided high-grade partial-thickness tearing involving the supraspinatus with a small area of full thickness tearing to the anterior portion of the tendon. No sign of any loose bodies. Subacromial space had significant amount of synovitis and bursitis in subacromial space as well as subdeltoid space. impingement lesion in the acromial arch. Mild arthritic changes to the AC joint with no significant inferior osteophytes. Closure Type: primary Specimen(s): none sent Prosthetic devices, grafts, tissues, transplants, or devices: One Arthrex lateral anchor Applied: implant(s) Estimated Blood Loss (mL): 10 Blood products transfused: none Procedure in detail: On date of service, Patient was met in the holding area. The operative site was signed and witnessed by the OR staff. The surgeries once again discussed with the patient and any remaining questions they had were answered fully. Patient was taken back to the operating theater and placed on the operating table in a supine position. Great care was taken to ensure that all bony prominences were properly padded. Patient was then placed into the beach chair position. The head and neck were properly positioned and secured. A timeout was performed verifying patient's name, procedure, and the operative site. The upper extremity was then prepped and draped in the normal sterile fashion. Previously, the bony anatomy and portal sites were marked out as well as injected with Marcaine with epinephrine. An 11 blade was used to make an incision in the posterior aspect of the shoulder. The camera was placed, and a diagnostic shoulder scope was performed. Findings listed above. Next under direct visualization, a anterior portal was made. A shaver was brought in and Extensive debridement of the glenohumeral joint was performed. the shaver was used to debride the extensive degenerative changes to the labrum. Also used to debride the articular surface of the supraspinatus where there was partial tearing. The type 1 slap tear was also debrided using the shaver. SEE FINDINGS Next the camera was placed into the subacromial space. A lateral portal was obtained under direct visualization. A combination of the shaver and vapor wand, a debridement of the inflamed tissue as well as inflamed bursa was performed. The lateral gutter was also cleaned out. This gave us good visualization of the bursal aspect of the rotator cuff as well as the acromial arch. There was an obvious impingement lesion in the acromial arch. Next, a mechanical rasp was then used to do a subacromial decompression. This allowed us to convert the acromion to a type I acromial. This also allowed us to shave down the bony lesion in the acromial space. The rasp was placed into the lateral portal as well as the anterior portal in order to do a complete subacromial decompression. The shaver was then used to completely debride out the subacromial and subdeltoid space removing the inflamed bursa and synovitis. This gave us good visualization of the rotator cuff and allowed us to visualize the small full-thickness tear to the anterior portion of the supraspinatus. A bur was used to decorticate the rotator cuff footprint for eventual healing of the rotator cuff tendon. We then turned our attention to the rotator cuff tear. FiberWire sutures were passed through the rotator cuff in a horizontal mattress configuration. The sutures were then placed into a lateral anchor and the anchor was then placed into the greater tuberosity. This helped secure as well as pull the rotator cuff tendons back to its normal footprint. This provided a secure repair of the supraspinatous tendons. The shoulder was then taken through range of motion and there was no sign of any additional impingement. Next, the suprascapular nerve was blocked. Patient's shoulder was then cleaned dried and dressed and patient was taken to the PACU in stable condition. Complications: none Condition: stable Disposition: PACU Plan for aftercare: Patient will follow our postoperative protocol for rotator cuff repair
[2019-02-17] MEDS: ONDANSETRON 4 MG/2 ML INJ IV (09:52)
[2019-02-17] MEDS: hydrOXYzine 50 MG/ML INJ 25 MG IM (10:05)
[2019-02-17] MEDS: OXYCODONE/ACETAMINOPHEN 5/325 TABLET 1 TAB PO ×2 (10:27→10:58)
--- NOTE | 2019-02-17 11:16 | SUR.PHASEII ---
1016: pt transferred to OPD on continuous nurse monitoring since pt's last IV narcotic was less than 20 minutes ago. Pt on continuous pulse oximetry due to pt on 2 L NC. Oxygen off at 1036. Monitored until 1100 and pt's sats remain >94%.
== END 2019-02-17 11:45 | disposition home or self-care (01) ==
PROVIDERS: PCP Nurse Practitioner Primary Care; Visit Provider Orthopaedic Surgery
PROC: (CPT 29827; principal; 2019-02-17 07:45)
DX: M75.111 Incomplete rotator cuff tear or rupture of right shoulder, not specified as traumatic (principal); M75.41 Impingement syndrome of right shoulder; G89.18 Other acute postprocedural pain; S43.431A Superior glenoid labrum lesion of right shoulder, initial encounter; W01.0XXA Fall on same level from slipping, tripping and stumbling without subsequent striking against object, initial encounter; E66.9 Obesity, unspecified; E03.9 Hypothyroidism, unspecified; E11.9 Type 2 diabetes mellitus without complications; F32.9 Major depressive disorder, single episode, unspecified
CPT/HCPCS: 29827; 29823; 29826; 64415; J0171; J0690; J1100; J2250; J2405; J2704; J2795; J3010; J3410; J8501

== ENCOUNTER → 2019-06-10 06:48 | Outpatient (CLI) | payer OTHER, SELFPAY ==
[2019-01-28 18:13] VITALS: BMI 37.6
--- NOTE | 2019-06-10 | DI.CT.S_ITS ---
PROCEDURE: CT ABDOMEN PELVIS WO CON INDICATIONS: KIDNEY STONE POST STENT PLACEMENT TECHNIQUE: Noncontrast 5 mm thick sections acquired from the diaphragms to the symphysis. 5 mm coronal and sagittal reformats were then performed. For radiation dose reduction, the following was used: automated exposure control, adjustment of mA and/or kV according to patient size. COMPARISON: None. FINDINGS: Image quality: Excellent. ABDOMEN: Lung bases: Lung bases are clear. Heart size is normal. Solid organs: Liver is normal in size. Gallbladder is contracted. Pancreas is normal in contours. Spleen is normal in size. No adrenal nodules. The right kidney is normal size. No nephrolithiasis. There is a right double-J ureteral stent appropriately placed within the renal pelvis and the bladder. There is no right hydronephrosis or hydroureter. No right perinephric fat stranding. There is severe left hydronephrosis. Multiple nonobstructing subcentimeter calculi are present within the left renal pelvis. Left ureter is dilated throughout its course. There is moderate left periureteral fat stranding. A punctate foci of gas is present within the left ureter (series 2, image 44). An ill-defined 4 mm calculus is present within the inferior left ureter (series 2, image 50). Additionally, a 1 mm calculus is present at the left ureterovesicular junction (series 2, image 72). No other bladder calculi. A small amount of gas is present within the bladder. Peritoneum and bowel: Unenhanced bowel loops demonstrate normal wall thickness and caliber. There are scattered sigmoid diverticula. No evidence for diverticulitis. The appendix is not visualized; however there is no discrete right lower quadrant fluid or fat stranding to suggest acute appendicitis. No free fluid or air. Nodes and vessels: There is a solitary enlarged left retroperitoneal lymph node measuring 1.0 cm in diameter (series 2, image 35). The no other mesenteric or retroperitoneal adenopathy. Aorta and inferior vena cava are normal in caliber. Miscellaneous: No ventral hernias. PELVIS: Genitourinary: Bladder wall thickness is normal. Miscellaneous: No inguinal hernias or adenopathy. Bones: No suspicious bony lesions. No vertebral body compression fractures. Posterior lumbosacral fixation hardware is grossly intact. IMPRESSION: 1. Appropriately placed right double-J ureteral stent. No recurrent right hydronephrosis or hydroureter. 2. Severe left hydronephrosis, hydroureter and ureterolithiasis. An obstructing calculus is either present within the mid ureter or the distal ureter. 2. Nonobstructing left nephrolithiasis. Dictated by: Rosa Maddox M.D. on 06/10/2019 at 10:18 Approved by: Rosa Maddox M.D. on 06/10/2019 at 10:24
== END ==
PROVIDERS: PCP Nurse Practitioner; Visit Provider Urology
DX: N13.2 Hydronephrosis with renal and ureteral calculous obstruction (principal); Z96.0 Presence of urogenital implants
CPT/HCPCS: 74176

== ENCOUNTER 2019-08-16 21:24 | Emergency (ER) | payer OTHER, SELFPAY ==
[2019-01-28 18:13] VITALS: BMI 37.6
[2019-08-16 21:30] VITALS: BP 169/95; PULSE 89; RESP 16; TEMP 37.1; O2SAT 95; BMI 32.3
[2019-08-16 22:27] LABS: Add Manual Diff / Slide Review NO; Basophils Absolute Auto 100 /uL (0-100); Basophils Percent Auto 0.8 % (0-2); Eosinophils Absolute Auto 200 /uL (0-450); Eosinophils Percent Auto 1.8 % (2-4); Hemoglobin 12.7 g/dL (12.0-16.0); Lymphocytes Absolute Auto 2200 /uL (1100-4500); Lymphocytes Percent Auto 21.8 % (25-40); Mean Corpuscular HGB Conc 33.5 % (30-36); Mean Corpuscular Hemoglobin 29.1 PG (26-34); Mean Corpuscular Volume 87.1 fL (80-100); Monocytes Absolute Auto 600 /uL (0-900); Monocytes Percent Auto 5.8 % (3-14); Neutrophils Absolute Auto 6900 /uL (1500-7000); Neutrophils Percent Auto 69.8 % (50-75); Platelet Count 352 X10^3/uL (150-400); Red Blood Cell Count 4.36 X10^6/uL (4.0-5.2); Red Cell Distribution Width 16.9 % (11.6-14.8); White Blood Cell Count 9.9 X10^3/uL (4.5-11.0)
[2019-08-16 22:39] LABS: Acetaminophen < 10 ug/mL (10-30); Alanine Aminotransferase 22 IU/L (9-52); Albumin 4.3 g/dL (3.5-5.0); Albumin Globulin Ratio 1.4 (1.0-2.8); Alkaline Phosphatase 153 U/L (38-126); Aspartate Aminotransferase 23 IU/L (14-36); BUN Creatinine Ratio 10.9 (6-22); Bilirubin Total 0.5 mg/dL (0.2-1.3); Blood Urea Nitrogen 12 mg/dL (7-17); Calcium 9.1 mg/dL (8.4-10.2); Carbon Dioxide 28 mmol/L (22-32); Chloride 101 mmol/L (98-107); Estimated Glomerular Filt Rate 51.8 mL/min (>60); Ethanol (ETOH) < 10 mg/dL; Globulin 3.1 g/dL (1.7-4.1); Glucose 116 mg/dL (70-100); HEMOLYSIS < 15 (0-50); Lipase 124 U/L (23-300); Sodium 139 mmol/L (137-145); Total Protein 7.4 g/dL (6.3-8.2)
[2019-08-16 22:40] LABS: Salicylate < 1.0 mg/dL (<20)
--- NOTE | 2019-08-16 23:06 | ED.PSYCH ---
HPI - Psych General Chief Complaint: Psychiatric Symptoms Stated Complaint: SUICIDAL Time Seen by Provider: 08/16/19 22:02 Source: patient Mode of arrival: Ambulatory Limitations: no limitations History of Present Illness HPI Narrative: 54-year-old female. Does have a history of depression. Does see a mental health provider and a counselor. Is on multiple medications for this. She states that back when she was 18-year-old she did attempt suicide. Reports that last evening and this morning she attempted to inject her right arm with a syringe full of air and attempt to kill herself. She states that the needle in the syringe were clean. She states that she had access to them because it was for vent area use. She denies any other toxic ingestions to include alcohol and drugs. Patient did come to the emergency department voluntarily. Is complaining of pain in the right upper extremity and also chest discomfort. She states she does have access to firearms at home although she states that if she were to kill herself this would not be the way that she would try it she is agreeable to having blood drawn and for us attempting to find placement. Related Data Home Medications Medication Instructions Recorded Confirmed citalopram 40 mg PO BEDTIME 10/25/18 08/17/19 lamotrigine 100 mg PO BID 10/25/18 08/17/19 levothyroxine 25 mcg PO QAM 10/25/18 08/17/19 omeprazole 40 mg PO BID 10/25/18 08/17/19 spironolactone 25 mg PO BID 10/25/18 08/17/19 trazodone 100 mg PO BEDTIME 10/25/18 02/17/19 hydrocodone-acetaminophen 1 tab PO Q6H PRN 01/17/19 02/17/19 sucralfate 1 g PO Q6H 01/17/19 02/17/19 caffeine 200 mg PO BID PRN 08/17/19 08/17/19 cyclobenzaprine 5 mg PO TID PRN 08/17/19 08/17/19 dextroamphetamine-amphetamine 20 mg PO QAM 08/17/19 08/17/19 lithium carbonate 300 mg PO BEDTIME 08/17/19 08/17/19 ranitidine HCl 150 mg PO BID 08/17/19 08/17/19 Previous Rx's Medication Instructions Recorded acetaminophen 650 mg PO Q6HR PRN #60 tab 01/31/19 docusate sodium 100 mg PO BID #60 cap 01/31/19 hydroxyzine pamoate [Vistaril] 25 mg PO TID-QID PRN #60 cap 02/17/19 oxycodone-acetaminophen [Percocet] 2 tab PO Q4-6H PRN #60 tab 02/17/19 Allergies Allergy/AdvReac Type Severity Reaction Status Date / Time No Known Drug Allergies Allergy Verified 01/28/19 10:32 Review of Systems Constitutional Constitutional: Denies headache(s) ENT Ears, Nose, Mouth, and Throat: Denies headache(s) Cardiovascular Cardiovascular: Reports chest pain, Denies edema, Denies palpitations and Denies dyspnea Respiratory Respiratory: Denies dyspnea Gastrointestinal Gastrointestinal: Denies abdominal pain, Denies nausea and Denies vomiting Genitourinary Genitourinary: Denies dysuria Musculoskeletal Comments: Right arm pain Integumentary/Breasts Skin/Breast: Denies lesions and Denies rash Neurologic Neurologic: Denies behavioral changes and Denies headache(s) Psychiatric Psychiatric: Denies behavioral changes, Reports depression, Denies homicidal ideation and Reports suicidal ideation Endocrine Endocrine: Denies palpitations Hematologic/Lymphatic Hematologic/Lymphatic: Denies easy bleeding and Denies easy bruising [facility] Medical History ADHD (Acute) Chronic back pain (Acute) Depression (Acute) Diabetes (Acute) GERD (gastroesophageal reflux disease) (Acute) Headache, migraine (Acute) Hx of nephrolithotomy with removal of calculi (Acute) Hyperlipidemia (Acute) Hypertension (Acute) Hypothyroidism (Acute) Lumbar disc disease (Acute) Lumbar disc herniation with radiculopathy (Acute) Obesity (Acute) Osteoarthritis (Acute) Rotator cuff tear arthropathy of right shoulder (Acute) Shoulder impingement (Acute) Shoulder pain, right (Acute) Wrist injury (Acute ~09/23/18) Surgical History History of abdominal surgery (Acute) History of carpal tunnel release (Acute) History of colonoscopy (Acute) History of esophagogastroduodenoscopy (EGD) (Acute) History of hysterectomy (Acute) History of tonsillectomy (Acute) Hx of microdiscectomy (Acute 10/29/18) Social History household members: none Smoking Status: Never smoker alcohol intake: current Social History household members: none Smoking Status: Never smoker alcohol intake: current Exam Initial Vital Signs Initial Vital Signs: Vital Signs Temperature 98.7 F 08/16/19 21:30 Pulse Rate 89 08/16/19 21:30 Respiratory Rate 16 08/16/19 21:30 Blood Pressure 169/95 H 08/16/19 21:30 Pulse Oximetry 95 08/16/19 21:30 Const General: cooperative, comfortable, well developed, well groomed and No acute distress Orientation: alert and oriented x3 HENMT Head: normal to inspection and normocephalic Chest Chest: No crepitus and No tenderness Resp Effort & Inspection: normal respiratory effort Auscultation: clear to auscultation bilaterally Cardio Rate: regular rate Rhythm: regular rhythm Pulses: radial pulses present GI Inspection: non-distended Palpation: soft, No firm and No tender Skin Lesions: no lesions Rashes: no rashes Neuro General: alert, awake and oriented x3 Cranial Nerves: CN's II-XI intact bilaterally Cognition: normal cognition Speech: speech normal Extrem General: normal to inspection and capillary refill normal Other: No crepitus in the right upper extremity. No signs of infection. Psych Appearance: grossly normal and well kempt Scores GCS [place] coma scale eye opening: Spontaneous Fred coma scale verbal response: Orientated [place] coma scale motor response: Obey commands [place] coma scale total score: 15 Course Orders Ordered: ED Orders 08/16/19 22:04 Consult to Character Actor Stat EKG-12 Lead Stat 08/16/19 22:14 Acetaminophen Stat Complete Blood Count AUTO DIFF Stat Comprehensive Metabolic Panel Stat Ethanol (ETOH) Stat Lipase Stat Salicylate Stat Thyroid Stimulating Hormone Stat 08/16/19 22:55 Urine Drug Screen, Rapid Stat 08/17/19 00:38 XR chest 2V Stat Discontinued Medications Acetaminophen (Tylenol) 650 mg PO NOW ONE Stop: 08/17/19 03:07 Last Admin: 08/17/19 04:10 Dose: 650 mg Documented by: AGUS Potassium Chloride (Potassium Chloride) 40 meq PO NOW ONE Stop: 08/17/19 04:23 Last Admin: 08/17/19 04:28 Dose: 40 meq Documented by: AGUS Vital Signs Vital signs: Vital Signs - 8 hr 08/16/19 21:30 Temperature 98.7 F Pulse Rate 89 Respiratory Rate 16 Blood Pressure 169/95 H Pulse Oximetry 95 MDM - Psych Lab Data Attestation: I reviewed the patient's lab results. Result diagrams: 08/16/19 22:14 08/16/19 22:14 Labs: Lab Results 08/16/19 08/16/19 08/16/19 Range/Units 22:14 22:14 22:14 WBC 9.9 (4.5-11.0) X10^3/uL RBC 4.36 (4.0-5.2) X10^6/uL Hgb 12.7 (12.0-16.0) g/dL Hct 38.0 (36-46) % MCV 87.1 (80-100) fL MCH 29.1 (26-34) PG MCHC 33.5 (30-36) % RDW 16.9 H (11.6-14.8) % Plt Count 352 (150-400) X10^3/uL Neut % (Auto) 69.8 (50-75) % Lymph % (Auto) 21.8 L (25-40) % [facility] % (Auto) 5.8 (3-14) % Eos % (Auto) 1.8 L (2-4) % Baso % (Auto) 0.8 (0-2) % Neut # (Auto) 6900 (8046-1338) /uL Lymph # (Auto) 2200 (3025-9550) /uL [facility] # (Auto) 600 (0-900) /uL Eos # (Auto) 200 (0-450) /uL Baso # (Auto) 100 (0-100) /uL Sodium 139 (137-145) mmol/L Potassium 3.0 L (3.4-5.1) mmol/L Chloride 101 (98-107) mmol/L Carbon Dioxide 28 (22-32) mmol/L BUN 12 (7-17) mg/dL Creatinine 1.10 H (0.52-1.04) mg/dL Estimated GFR 51.8 L (>60) mL/min BUN/Creatinine Ratio 10.9 (6-22) Glucose 116 H (70-100) mg/dL Calcium 9.1 (8.4-10.2) mg/dL Total Bilirubin 0.5 (0.2-1.3) mg/dL AST 23 (14-36) IU/L ALT 22 (9-52) IU/L Alkaline Phosphatase 153 H (38-126) U/L Total Protein 7.4 (6.3-8.2) g/dL Albumin 4.3 (3.5-5.0) g/dL Globulin 3.1 (1.7-4.1) g/dL Albumin/Globulin Ratio 1.4 (1.0-2.8) Lipase 124 (23-300) U/L TSH 3.76 (0.47-4.68) uIU/mL Salicylates (<20) mg/dL U Morph 300 ng/mL cutoff (Negative) Ur Oxycodone Screen (Negative) Urine Methadone Screen (Negative) Acetaminophen < 10 L (10-30) ug/mL Ur Barbiturates Screen (Negative) U Tricyclic Antidepress (Negative) Ur Phencyclidine Scrn (Negative) Ur Amphetamines Screen (Negative) U Methamphetamines Scrn (Negative) Ur MDMA Scrn (Ecstasy) (Negative) U Benzodiazepines Scrn (Negative) Urine Cocaine Screen (Negative) U Marijuana (THC) Screen (Negative) Ethyl Alcohol < 10 ( - 10) mg/dL 08/16/19 08/16/19 Range/Units 22:14 22:55 WBC (4.5-11.0) X10^3/uL RBC (4.0-5.2) X10^6/uL Hgb (12.0-16.0) g/dL Hct (36-46) % MCV (80-100) fL MCH (26-34) PG MCHC (30-36) % RDW (11.6-14.8) % Plt Count (150-400) X10^3/uL Neut % (Auto) (50-75) % Lymph % (Auto) (25-40) % [facility] % (Auto) (3-14) % Eos % (Auto) (2-4) % Baso % (Auto) (0-2) % Neut # (Auto) (2586-1059) /uL Lymph # (Auto) (7756-0679) /uL [facility] [place] # (Auto) (0-900) /uL Eos # (Auto) (0-450) /uL Baso # (Auto) (0-100) /uL Sodium (137-145) mmol/L Potassium (3.4-5.1) mmol/L Chloride (98-107) mmol/L Carbon Dioxide (22-32) mmol/L BUN (7-17) mg/dL Creatinine (0.52-1.04) mg/dL Estimated GFR (>60) mL/min BUN/Creatinine Ratio (6-22) Glucose (70-100) mg/dL Calcium (8.4-10.2) mg/dL Total Bilirubin (0.2-1.3) mg/dL AST (14-36) IU/L ALT (9-52) IU/L Alkaline Phosphatase (38-126) U/L Total Protein (6.3-8.2) g/dL Albumin (3.5-5.0) g/dL Globulin (1.7-4.1) g/dL Albumin/Globulin Ratio (1.0-2.8) Lipase (23-300) U/L TSH (0.47-4.68) uIU/mL Salicylates < 1.0 (<20) mg/dL U Morph 300 ng/mL cutoff Negative (Negative) Ur Oxycodone Screen Negative (Negative) Urine Methadone Screen Negative (Negative) Acetaminophen (10-30) ug/mL Ur Barbiturates Screen Negative (Negative) U Tricyclic Antidepress Positive H (Negative) Ur Phencyclidine Scrn Negative (Negative) Ur Amphetamines Screen Positive H (Negative) U Methamphetamines Scrn Negative (Negative) Ur MDMA Scrn (Ecstasy) Negative (Negative) U Benzodiazepines Scrn Negative (Negative) Urine Cocaine Screen Negative (Negative) U Marijuana (THC) Screen Positive H (Negative) Ethyl Alcohol ( - 10) mg/dL Point of Care Testing Test Results Negative Urine Dip Bedside Urine Glucose Negative Bedside Urine Bilirubin - Negative Bedside Urine Ketone - Negative Urine Specific He[place] 1.015 Bedside Urine Occult Blood - Negative Bedside Urine pH 6.0 Bedside Urine Protein +/- 15 Bedside Urine Urobilinogen - Negative Bedside Urine Nitrite - Negative Bedside Urine Leukocytes - Negative Esterase Imaging Data Chest x-ray: Attestation: I personally reviewed and interpreted this imaging study as follows: My impression: No pneumonia, no pneumothorax, no acute changes ECG Data Attestation: I personally reviewed and interpreted this ECG as follows: Prior ECG tracings: not available for review Interpretation: Sinus rhythm Ventricular rate 82 Normal axis Normal QRS Normal QTC No ST T wave changes MDM Narrative Medical decision making narrative: Patient is nontoxic appearing. She is medically cleared. Her EKG is unremarkable. Chest x-ray is unremarkable. I do not feel that she is in danger of the attempts at injecting herself with the air. There is no signs of an acute air embolus. Patient has been voluntary. She would like placement. Social work consult placed. Will continue to monitor until placement is found for patient. Patient is stable overnight. Potassium was replaced orally. She has no EKG changes. Chest x-ray is negative. no concerning findings with regard to the injections that she stated she did yesterday. Tylenol was given for right arm pain. social work consult has been placed. Care turned over to day provider to follow up. Discharge Plan Departure Patient Disposition: Xfer Psychiatric Hosp Clinical Impression: Suicidal ideation Referrals: Viky Gomez ARNP [Primary Care Provider] -
[2019-08-16 23:15] LABS: Thyroid Stimulating Hormone 3.76 uIU/mL (0.47-4.68)
--- NOTE | 2019-08-16 23:19 | PC.NURSE ---
Patient cannot stop squirming in bed. He keeps asking to make it stop. Patient is not combative and is cooperating with all commands.
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
[2019-08-16 23:23] LABS: Ur Creatinine 20 (Normal); Ur Specific Gravity 1.025 (Normal); Urine pH 5 (Normal)
--- NOTE | 2019-08-16 23:24 | PC.NURSE ---
Saniya and I had to take off the patients pants for safety concerns. While he was moving non stop we noticed a needle starting to slide out of his pocket. I was able to safely grab it and dispose of it, so we took off his pants to make sure they were empty without feeling in them. Patient stated he thought the police took everything out of his pockets.
[2019-08-16 23:25] LABS: UR Morphine/Opiate cutoff 300 Negative (Negative); Urine Amphetamines Positive (Negative); Urine Cocaine Negative (Negative); Urine Methamphetamines Negative (Negative); Urine Tetrahydrocannabinol Positive (Negative)
[2019-08-16 23:26] LABS: Urine Barbiturates Negative (Negative); Urine Benzodiazepines Negative (Negative); Urine MDMA Negative (Negative); Urine Methadone Negative (Negative); Urine Oxycodone Negative (Negative); Urine Phencyclidine Negative (Negative); Urine Tricyclic Antidepressant Positive (Negative)
--- NOTE | 2019-08-17 00:30 | PC.NURSE ---
patient complaining of chest pain and right arm pain. denies any shortness of breath. provider notified. provider ordered a chest x ray.
--- NOTE | 2019-08-17 00:38 | DI.RAD.S_ITS ---
PROCEDURE: XR CHEST 2V INDICATIONS: Chest pain TECHNIQUE: 2 views of the chest were acquired. COMPARISON: None. FINDINGS: Surgical changes and devices: Soft tissue anchor projecting the right humeral head Lungs and pleura: Lungs are clear. No pleural effusions or pneumothorax. Mediastinum: Mediastinal contours are normal. Heart size is normal. Bones and chest wall: No suspicious bony abnormalities. Soft tissues appear unremarkable. IMPRESSION: No acute disease. Dictated by: Jez Calderon M.D. on 08/17/2019 at 8:59 Approved by: Jez Calderon M.D. on 08/17/2019 at 8:59
[2019-08-17] MEDS: ACETAMINOPHEN 325 MG TABLET 650 MG PO (04:10)
[2019-08-17] MEDS: POTASSIUM CHLORIDE 20 MEQ/15 ML UDC 40 MEQ PO (04:28)
--- NOTE | 2019-08-17 05:50 | PC.NURSE ---
patient requested to take home medications. provider okay with patient to take home medications but no narcotics.
[2019-08-17] MEDS: IBUPROFEN 400 MG TABLET 800 MG PO (07:16)
[2019-08-17 07:40] VITALS: BP 141/87; PULSE 78; RESP 16; TEMP 36.7; O2SAT 99
--- NOTE | 2019-08-17 08:14 | PC.NURSE ---
Patient awake and eating breakfast. Denies needs at this time. Awaiting social work. Sitter outside of door.
[2019-08-17 11:23] VITALS: BP 151/83; PULSE 83; RESP 18; TEMP 37.2
[2019-08-17] MEDS: LORazepam 0.5 MG TABLET 1 MG PO ×2 (12:26→17:38)
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
--- NOTE | 2019-08-17 15:25 | CM.SWNOTE ---
SQL SERVER ARCHITECT Note continued: Received notification that [facility] has accepted for mental health stabilization today. Accepting MD is Dr. Issa. Patient assigned to room #118. RN given number to call nursing report ph# [phone]. No additional needs identified. P: [facility] accepted today. ED staff to coordinate non-urgent BLS transport, make packet, and call report. RAPHAEL Spencer
[2019-08-17 16:03] VITALS: BP 135/91; PULSE 85; RESP 17; O2SAT 98
--- NOTE | 2019-08-17 17:10 | PC.NURSE ---
Pt requesting to go out to her car to grab her belongings before transport comes to take her to [facility]. I told the pt that she can't leave the department in order to protect herself and others. I told her that we could have the jail guard go out to her car and grab the bag if that is something she would be comfortable with. She agreed that that would be a good idea.
--- NOTE | 2019-08-17 17:19 | PC.NURSE ---
pt talking on cell phone in room
--- NOTE | 2019-08-17 17:38 | PC.NURSE ---
dr. dewitt said ok to given pt own evening meds. gave as prescribed on bottle. citalopram 40mg, spironolactone 25mg, lamotrigine 100mg, raniditine 150mg, cyclobenzaprine 10mg, omeprazole 40mg, lithium carbonate 300mg.
== END 2019-08-17 18:45 ==
PROVIDERS: Emergency Medicine; Emergency Provider Emergency Medicine; PCP Nurse Practitioner
DX: R45.851 Suicidal ideations (principal); R07.9 Chest pain, unspecified
CPT/HCPCS: 36415; 71046; 80053; 80305; 80320; 80329; 81003; 81025; 82962; 83690; 84443; 85025; 93005; 99285; G0480

== ENCOUNTER 2019-12-12 14:43 | Emergency (ER) | payer OTHER, MEDICAID, SELFPAY ==
[2019-01-28 18:13] VITALS: BMI 37.6
[2019-12-12 14:59] VITALS: BP 140/89; PULSE 90; RESP 18; TEMP 36.7; O2SAT 100; BMI 30.3
[2019-12-12 15:43] LABS: Add Manual Diff / Slide Review NO; Basophils Absolute Auto 100 /uL (0-100); Basophils Percent Auto 0.5 % (0-2); Eosinophils Absolute Auto 2100 /uL (0-450); Eosinophils Percent Auto 14.5 % (2-4); Hematocrit 41.3 % (36-46); Lymphocytes Absolute Auto 2200 /uL (1100-4500); Lymphocytes Percent Auto 15.5 % (25-40); Mean Corpuscular HGB Conc 33.8 % (30-36); Mean Corpuscular Hemoglobin 30.7 PG (26-34); Mean Corpuscular Volume 90.9 fL (80-100); Monocytes Absolute Auto 600 /uL (0-900); Monocytes Percent Auto 4.5 % (3-14); Neutrophils Absolute Auto 9300 /uL (1500-7000); Platelet Count 408 X10^3/uL (150-400); Red Blood Cell Count 4.55 X10^6/uL (4.0-5.2); Red Cell Distribution Width 14.2 % (11.6-14.8); White Blood Cell Count 14.3 X10^3/uL (4.5-11.0)
--- NOTE | 2019-12-12 15:51 | ED_ITS ---
HPI - Psych <Yolis Moncada, YARD GOODS SALESPERSON - Last Filed: 12/12/19 20:52> General Chief Complaint: Psychiatric Symptoms Stated Complaint: SI Time Seen by Provider: 12/12/19 15:24 Source: patient Mode of arrival: Ambulatory History of Present Illness HPI Narrative: 54yo female voluntarily presents to the emergency department for suicidal thoughts. She states she has history of major depressive disorder. Patient was recently taking lithium and Lamictal, she was also given Ativan by her psychiatrist to help with increased anxiety. Patient states she was in the library today and there was a lot of noise with a woman yelling on the phone and a child screaming, she noted increased anxiety and suicidal thoughts. Patient states she thinks about suicide often. Most recently she stated ?I have a handgun 380 at my bedside but I did not think it will use that because of my kids. I think about driving off the road often, have a small car and they were many places to drive off the road in [facility] or acute drive in front of a truck. When patient was asked if she feels safe here she replied ?I do not feel safe and where, never feels safe anywhere?. 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 Patient denies any m edical complaints. She denies abdominal pain, chest pain, shortness of breath, nausea, vomiting, diarrhea, fevers, chills, or other concerns. She states she sees her psychiatrist once a month and sees her counselor 1 to 2 times a week. Related Data Home Medications Medication Instructions Recorded Confirmed citalopram 40 mg PO BEDTIME 10/25/18 12/12/19 lamotrigine 100 mg PO BID 10/25/18 12/12/19 levothyroxine 25 mcg PO QAM 10/25/18 12/12/19 omeprazole 40 mg PO BID 10/25/18 12/12/19 sucralfate 1 g PO Q6H PRN 01/17/19 12/12/19 caffeine 200 mg PO QAM 08/17/19 12/12/19 lithium carbonate 300 mg PO BEDTIME 08/17/19 12/12/19 lamotrigine 50 mg PO DAILY 12/12/19 12/12/19 lorazepam 1 mg PO BID PRN 12/12/19 12/12/19 quetiapine 100 mg PO BEDTIME 12/12/19 12/12/19 Previous Rx's Medication Instructions Recorded acetaminophen 650 mg PO Q6HR PRN #60 tab 01/31/19 Allergies Allergy/AdvReac Type Severity Reaction Status Date / Time No Known Drug Allergies Allergy Verified 12/12/19 15:53 Review of Systems <ROLAN Arroyo - Last Filed: 12/12/19 20:52> Review of Systems Narrative: REVIEW OF SYSTEMS: GENERAL: Denies fever or chills. HENT: No head trauma, hearing loss or sore throat. EYES: No loss of vision, double vision, eye pain, or irritation. CARDIOVASCULAR: No chest pain or syncope. RESPIRATORY: No shortness of breath or cough. GASTROINTESTINAL: No nausea, vomiting, diarrhea, or constipation. GENITOURINARY: No flank pain or dysuria. MUSCULOSKELETAL: No trauma or pain. INTEGUMENTARY: No rash, lesions, or pruritus. NEURO: No confusion. PSYCH: Complains of increased anxiety and suicidal ideation, see HPI. Patient History <ROLAN Arroyo - Last Filed: 12/12/19 20:52> Medical History ADHD (Acute) Chronic back pain (Acute) Depression (Acute) Diabetes (Acute) GERD (gastroesophageal reflux disease) (Acute) Headache, migraine (Acute) Hx of nephrolithotomy with removal of calculi (Acute) Hyperlipidemia (Acute) Hypertension (Acute) Hypothyroidism (Acute) Lumbar disc disease (Acute) Lumbar disc herniation with radiculopathy (Acute) Obesity (Acute) Osteoarthritis (Acute) Rotator cuff tear arthropathy of right shoulder (Acute) Shoulder impingement (Acute) Shoulder pain, right (Acute) Wrist injury (Acute ~09/23/18) Surgical History History of abdominal surgery (Acute) History of carpal tunnel release (Acute) History of colonoscopy (Acute) History of esophagogastroduodenoscopy (EGD) (Acute) History of hysterectomy (Acute) History of tonsillectomy (Acute) Hx of microdiscectomy (Acute 10/29/18) Social History household members: none Smoking Status: Never smoker alcohol intake: current Smoking Status: Never smoker alcohol intake frequency: holidays/special occasions only Substance Use Type: marijuana Exam <ROLAN Arroyo - Last Filed: 12/12/19 20:52> Initial Vital Signs Initial Vital Signs: Vital Signs Temperature 98.1 F 12/12/19 14:59 Pulse Rate 90 12/12/19 14:59 Respiratory Rate 18 12/12/19 14:59 Blood Pressure 140/89 12/12/19 14:59 Pulse Oximetry 100 12/12/19 14:59 PHYSICAL EXAMINATION: GENERAL: Well groomed, alert, and cooperative. Answers questions promptly and appropriately. Vital signs noted. Patient is seen pacing around the room, she often looks at the floor when asked questions. HENT: Normocephalic, atraumatic. Ear canals patent. Oral mucosa is pink and [address]. EYES: Conjunctiva pink, sclera white, no periorbital swelling. CHEST: Normal to inspection and without deformities. CARDIOVASCULAR: S1 and S2 sounds normal. Regular rate and rhythm, no murmurs, clicks, or bruits. No pedal edema. RESPIRATORY: Normal respiratory rate, trachea midline, airway patent. No stridor, nasal flaring or accessory muscle use. Lungs are clear in all fernandez without wheeze, rhonchi, or crackles. GASTROINTESTINAL: Bowel sounds normoactive. Abdomen is soft and non-tender. No organomegaly. MUSCULOSKELETAL: Normal gait and coordination. Equal tone and mass bilaterally. EXTREMITIES: CMS intact. Moves all extremities. SKIN: Warm, dry, soft, appropriate color for ethnicity. No lesions, rashes, or wounds. NEURO: Alert and Oriented X 3. Good coordination. No ataxia, or sensory deficits, or cognitive issues. PSYCH: Patient appears anxious and restless often pacing. <Duglas Darling MD - Last Filed: 12/13/19 07:35> Initial Vital Signs Initial Vital Signs: Vital Signs Temperature 98.1 F 12/12/19 14:59 Pulse Rate 90 12/12/19 14:59 Respiratory Rate 18 12/12/19 14:59 Blood Pressure 140/89 12/12/19 14:59 Pulse Oximetry 100 12/12/19 14:59 Course <ROLAN Arroyo - Last Filed: 12/12/19 20:52> Course Course Narrative: Patient was seen pacing in her room in the emergency department. She was given paper scrubs and her belongings were removed. Patient was initially given 1 mg of p.o. Ativan to help with pacing and anxiety. This did not help, she was given a mg of Seroquel that she states she takes at bedtime. Patient was also given food and Tea, she was continually monitored. Patient was given Seroquel that she takes at bedtime, after medication administration, patient was seen resting in her bed without any pacing. Orders Ordered: Lamotrigine (Lamictal) 50 mg PO BID ON LICENSE OF [facility] Last Admin: 12/13/19 00:37 Dose: 50 mg Documented by: CHAPIS Levothyroxine Sodium (Synthroid) 25 mcg PO 0600 ON LICENSE OF [facility] Quetiapine Fumarate (Seroquel) 100 mg PO BEDTIME ON LICENSE OF [facility] Last Admin: 12/13/19 00:37 Dose: 100 mg Documented by: CHAPIS Sucralfate (Carafate) 1 gm PO Q6HR ON LICENSE OF [facility] Discontinued Medications Citalopram Hydrobromide (Celexa) 40 mg PO NOW ONE Stop: 12/12/19 22:17 Last Admin: 12/13/19 00:36 Dose: 40 mg Documented by: CHAPIS Greenwater Carbonate (Greenwater Carbonate) 300 mg PO NOW ONE Stop: 12/12/19 22:19 Last Admin: 12/13/19 00:40 Dose: Not Given Documented by: CHAPIS Greenwater Carbonate (Lithobid) 300 mg PO NOW ONE Stop: 12/13/19 00:40 Last Admin: 12/13/19 00:41 Dose: 300 mg Documented by: CHAPIS Lorazepam (Ativan) 1 mg PO NOW ONE Stop: 12/12/19 15:51 Last Admin: 12/12/19 15:55 Dose: 1 mg Documented by: MIRELA Quetiapine Fumarate (Seroquel) 100 mg PO NOW ONE Stop: 12/12/19 16:45 Last Admin: 12/12/19 17:07 Dose: 100 mg Documented by: MEDINA Vital Signs Vital signs: Vital Signs - 8 hr 12/12/19 14:59 12/12/19 19:17 Temperature 98.1 F 97.5 F L Pulse Rate 90 81 Respiratory Rate 18 19 Blood Pressure 140/89 Blood Pressure [Left Arm] 123/78 Pulse Oximetry 100 <Duglas Darling MD - Last Filed: 12/13/19 07:35> Orders Ordered: Lamotrigine (Lamictal) 50 mg PO BID ON LICENSE OF [facility] Last Admin: 12/13/19 00:37 Dose: 50 mg Documented by: CHAPIS Levothyroxine Sodium (Synthroid) 25 mcg PO 0600 ON LICENSE OF [facility] Quetiapine Fumarate (Seroquel) 100 mg PO BEDTIME ON LICENSE OF [facility] Last Admin: 12/13/19 00:37 Dose: 100 mg Documented by: CHAPIS Sucralfate (Carafate) 1 gm PO Q6HR KAYE Discontinued Medications Citalopram Hydrobromide (Celexa) 40 mg PO NOW ONE Stop: 12/12/19 22:17 Last Admin: 12/13/19 00:36 Dose: 40 mg Documented by: CHAPIS Greenwater Carbonate (Greenwater Carbonate) 300 mg PO NOW ONE Stop: 12/12/19 22:19 Last Admin: 12/13/19 00:40 Dose: Not Given Documented by: CHAPIS Greenwater Carbonate (Lithobid) 300 mg PO NOW ONE Stop: 12/13/19 00:40 Last Admin: 12/13/19 00:41 Dose: 300 mg Documented by: CHAPIS Lorazepam (Ativan) 1 mg PO NOW ONE Stop: 12/12/19 15:51 Last Admin: 12/12/19 15:55 Dose: 1 mg Documented by: MIRELA Quetiapine Fumarate (Seroquel) 100 mg PO NOW ONE Stop: 12/12/19 16:45 Last Admin: 12/12/19 17:07 Dose: 100 mg Documented by: MEDINA Vital Signs Vital signs: Vital Signs - 8 hr 12/12/19 14:59 12/12/19 19:17 Temperature 98.1 F 97.5 F L Pulse Rate 90 81 Respiratory Rate 18 19 Blood Pressure 140/89 Blood Pressure [Left Arm] 123/78 Pulse Oximetry 100 MDM - Psych <ROLAN Arroyo - Last Filed: 12/12/19 20:52> Medical Records Attestation: I reviewed the patient's medical records. Lab Data Attestation: I reviewed the patient's lab results. Result diagrams: 12/12/19 15:33 12/12/19 15:33 Labs: Lab Results 12/12/19 12/12/19 12/12/19 Range/Units 15:33 15:33 15:33 WBC 14.3 H (4.5-11.0) X10^3/uL RBC 4.55 (4.0-5.2) X10^6/uL Hgb 14.0 (12.0-16.0) g/dL Hct 41.3 (36-46) % MCV 90.9 (80-100) fL MCH 30.7 (26-34) PG MCHC 33.8 (30-36) % RDW 14.2 (11.6-14.8) % Plt Count 408 H (150-400) X10^3/uL Neut % (Auto) 65.0 (50-75) % Lymph % (Auto) 15.5 L (25-40) % [place] % (Auto) 4.5 (3-14) % Eos % (Auto) 14.5 H (2-4) % Baso % (Auto) 0.5 (0-2) % Neut # (Auto) 9300 H (7239-4927) /uL Lymph # (Auto) 2200 (1283-5297) /uL [place] # (Auto) 600 (0-900) /uL Eos # (Auto) 2100 H (0-450) /uL Baso # (Auto) 100 (0-100) /uL Sodium 139 (137-145) mmol/L Potassium 4.0 (3.4-5.1) mmol/L Chloride 103 (98-107) mmol/L Carbon Dioxide 25 (22-32) mmol/L BUN 12 (7-17) mg/dL Creatinine 1.20 H (0.52-1.04) mg/dL Estimated GFR 46.8 L (>60) mL/min BUN/Creatinine Ratio 10.0 (6-22) Glucose 92 (70-100) mg/dL Calcium 9.6 (8.4-10.2) mg/dL Total Bilirubin 0.4 (0.2-1.3) mg/dL AST 33 (14-36) IU/L ALT 15 (<35) IU/L Alkaline Phosphatase 240 H (38-126) U/L Total Protein 8.0 (6.3-8.2) g/dL Albumin 4.7 (3.5-5.0) g/dL Globulin 3.3 (1.7-4.1) g/dL Albumin/Globulin Ratio 1.4 (1.0-2.8) TSH 3.20 (0.47-4.68) uIU/mL Free T4 1.11 (0.78-2.19) ng/dL Salicylates 9.0 (<20) mg/dL U Opiates 300ng/mL cut (Negative) Ur Oxycodone Screen (Negative) Urine Methadone Screen (Negative) Acetaminophen < 10 L (10-30) ug/mL Ur Barbiturates Screen (Negative) U Tricyclic Antidepress (Negative) Ur Phencyclidine Scrn (Negative) Ur Amphetamines Screen (Negative) U Methamphetamines Scrn (Negative) Ur MDMA Scrn (Ecstasy) (Negative) U Benzodiazepines Scrn (Negative) Greenwater (0.6-1.2) mmol/L Urine Cocaine Screen (Negative) U Marijuana (THC) Screen (Negative) Ethyl Alcohol < 10 ( - 10) mg/dL 12/12/19 12/12/19 Range/Units 15:33 15:51 WBC (4.5-11.0) X10^3/uL RBC (4.0-5.2) X10^6/uL Hgb (12.0-16.0) g/dL Hct (36-46) % MCV (80-100) fL MCH (26-34) PG MCHC (30-36) % RDW (11.6-14.8) % Plt Count (150-400) X10^3/uL Neut % (Auto) (50-75) % Lymph % (Auto) (25-40) % [place] % (Auto) (3-14) % Eos % (Auto) (2-4) % Baso % (Auto) (0-2) % Neut # (Auto) (3555-8692) /uL Lymph # (Auto) (5941-2159) /uL [place] # (Auto) (0-900) /uL Eos # (Auto) (0-450) /uL Baso # (Auto) (0-100) /uL Sodium (137-145) mmol/L Potassium (3.4-5.1) mmol/L Chloride (98-107) mmol/L Carbon Dioxide (22-32) mmol/L BUN (7-17) mg/dL Creatinine (0.52-1.04) mg/dL Estimated GFR (>60) mL/min BUN/Creatinine Ratio (6-22) Glucose (70-100) mg/dL Calcium (8.4-10.2) mg/dL Total Bilirubin (0.2-1.3) mg/dL AST (14-36) IU/L ALT (<35) IU/L Alkaline Phosphatase (38-126) U/L Total Protein (6.3-8.2) g/dL Albumin (3.5-5.0) g/dL Globulin (1.7-4.1) g/dL Albumin/Globulin Ratio (1.0-2.8) TSH (0.47-4.68) uIU/mL Free T4 (0.78-2.19) ng/dL Salicylates (<20) mg/dL U Opiates 300ng/mL cut Negative (Negative) Ur Oxycodone Screen Negative (Negative) Urine Methadone Screen Negative (Negative) Acetaminophen (10-30) ug/mL Ur Barbiturates Screen Negative (Negative) U Tricyclic Antidepress Negative (Negative) Ur Phencyclidine Scrn Negative (Negative) Ur Amphetamines Screen Negative (Negative) U Methamphetamines Scrn Negative (Negative) Ur MDMA Scrn (Ecstasy) Negative (Negative) U Benzodiazepines Scrn Negative (Negative) Greenwater 0.3 L (0.6-1.2) mmol/L Urine Cocaine Screen Negative (Negative) U Marijuana (THC) Screen Negative (Negative) Ethyl Alcohol ( - 10) mg/dL Point of Care Testing Test Results Negative Urine Dip Bedside Urine Glucose Negative Bedside Urine Bilirubin - Negative Bedside Urine Ketone - Negative Urine Specific Lolita 1.010 Bedside Urine Occult Blood - Negative Bedside Urine pH 6.5 Bedside Urine Protein - Negative Bedside Urine Urobilinogen - Negative Bedside Urine Nitrite - Negative Bedside Urine Leukocytes - Negative Esterase MDM Narrative Medical decision making narrative: 54-year-old female with history of depression, presents to the emergency department for voluntary help with ramirez icidal ideation. Patient states that she does have a plan and she does not feel safe at home. Patient has been calm and cooperative, she was seen pacing around her room for the fusions few hours of her stay until the administration of Seroquel. Social work consult was placed, patient was requesting to be seen at [facility] but needs a psychological evaluation before placement can be done. IMPREGNATOR HELPER has left for the day the patient will be continually monitored overnight until social Work has a chance to evaluate patient. Patient agrees with plan of care verbalized understanding. Her care was signed out to Dr. Darling at 2100 for continued care. <Duglas Darling MD - Last Filed: 12/13/19 07:35> Lab Data Labs: Lab Results 12/12/19 12/12/19 12/12/19 Range/Units 15:33 15:33 15:33 WBC 14.3 H (4.5-11.0) X10^3/uL RBC 4.55 (4.0-5.2) X10^6/uL Hgb 14.0 (12.0-16.0) g/dL Hct 41.3 (36-46) % MCV 90.9 (80-100) fL MCH 30.7 (26-34) PG MCHC 33.8 (30-36) % RDW 14.2 (11.6-14.8) % Plt Count 408 H (150-400) X10^3/uL Neut % (Auto) 65.0 (50-75) % Lymph % (Auto) 15.5 L (25-40) % [place] % (Auto) 4.5 (3-14) % Eos % (Auto) 14.5 H (2-4) % Baso % (Auto) 0.5 (0-2) % Neut # (Auto) 9300 H (6443-0018) /uL Lymph # (Auto) 2200 (4825-1802) /uL [place] # (Auto) 600 (0-900) /uL Eos # (Auto) 2100 H (0-450) /uL Baso # (Auto) 100 (0-100) /uL Sodium 139 (137-145) mmol/L Potassium 4.0 (3.4-5.1) mmol/L Chloride 103 (98-107) mmol/L Carbon Dioxide 25 (22-32) mmol/L BUN 12 (7-17) mg/dL Creatinine 1.20 H (0.52-1.04) mg/dL Estimated GFR 46.8 L (>60) mL/min BUN/Creatinine Ratio 10.0 (6-22) Glucose 92 (70-100) mg/dL Calcium 9.6 (8.4-10.2) mg/dL Total Bilirubin 0.4 (0.2-1.3) mg/dL AST 33 (14-36) IU/L ALT 15 (<35) IU/L Alkaline Phosphatase 240 H (38-126) U/L Total Protein 8.0 (6.3-8.2) g/dL Albumin 4.7 (3.5-5.0) g/dL Globulin 3.3 (1.7-4.1) g/dL Albumin/Globulin Ratio 1.4 (1.0-2.8) TSH 3.20 (0.47-4.68) uIU/mL Free T4 1.11 (0.78-2.19) ng/dL Salicylates 9.0 (<20) mg/dL U Opiates 300ng/mL cut (Negative) Ur Oxycodone Screen (Negative) Urine Methadone Screen (Negative) Acetaminophen < 10 L (10-30) ug/mL Ur Barbiturates Screen (Negative) U Tricyclic Antidepress (Negative) Ur Phencyclidine Scrn (Negative) Ur Amphetamines Screen (Negative) U Methamphetamines Scrn (Negative) Ur MDMA Scrn (Ecstasy) (Negative) U Benzodiazepines Scrn (Negative) Greenwater (0.6-1.2) mmol/L Urine Cocaine Screen (Negative) U Marijuana (THC) Screen (Negative) Ethyl Alcohol < 10 ( - 10) mg/dL 12/12/19 12/12/19 Range/Units 15:33 15:51 WBC (4.5-11.0) X10^3/uL RBC (4.0-5.2) X10^6/uL Hgb (12.0-16.0) g/dL Hct (36-46) % MCV (80-100) fL MCH (26-34) PG MCHC (30-36) % RDW (11.6-14.8) % Plt Count (150-400) X10^3/uL Neut % (Auto) (50-75) % Lymph % (Auto) (25-40) % [place] % (Auto) (3-14) % Eos % (Auto) (2-4) % Baso % (Auto) (0-2) % Neut # (Auto) (2713-5553) /uL Lymph # (Auto) (7119-7910) /uL [place] # (Auto) (0-900) /uL Eos # (Auto) (0-450) /uL Baso # (Auto) (0-100) /uL Sodium (137-145) mmol/L Potassium (3.4-5.1) mmol/L Chloride (98-107) mmol/L Carbon Dioxide (22-32) mmol/L BUN (7-17) mg/dL Creatinine (0.52-1.04) mg/dL Estimated GFR (>60) mL/min BUN/Creatinine Ratio (6-22) Glucose (70-100) mg/dL Calcium (8.4-10.2) mg/dL Total Bilirubin (0.2-1.3) mg/dL AST (14-36) IU/L ALT (<35) IU/L Alkaline Phosphatase (38-126) U/L Total Protein (6.3-8.2) g/dL Albumin (3.5-5.0) g/dL Globulin (1.7-4.1) g/dL Albumin/Globulin Ratio (1.0-2.8) TSH (0.47-4.68) uIU/mL Free T4 (0.78-2.19) ng/dL Salicylates (<20) mg/dL U Opiates 300ng/mL cut Negative (Negative) Ur Oxycodone Screen Negative (Negative) Urine Methadone Screen Negative (Negative) Acetaminophen (10-30) ug/mL Ur Barbiturates Screen Negative (Negative) U Tricyclic Antidepress Negative (Negative) Ur Phencyclidine Scrn Negative (Negative) Ur Amphetamines Screen Negative (Negative) U Methamphetamines Scrn Negative (Negative) Ur MDMA Scrn (Ecstasy) Negative (Negative) U Benzodiazepines Scrn Negative (Negative) Greenwater 0.3 L (0.6-1.2) mmol/L Urine Cocaine Screen Negative (Negative) U Marijuana (THC) Screen Negative (Negative) Ethyl Alcohol ( - 10) mg/dL Point of Care Testing Test Results Negative Urine Dip Bedside Urine Glucose Negative Bedside Urine Bilirubin - Negative Bedside Urine Ketone - Negative Urine Specific Lolita 1.010 Bedside Urine Occult Blood - Negative Bedside Urine pH 6.5 Bedside Urine Protein - Negative Bedside Urine Urobilinogen - Negative Bedside Urine Nitrite - Negative Bedside Urine Leukocytes - Negative Esterase Discharge Plan Departure Prescriptions: No Action omeprazole 40 mg Capsule,Delayed Release(Dr/Ec) 40 mg PO BID RF: 0 citalopram 20 mg Tablet 40 mg PO BEDTIME RF: 0 lamotrigine 100 mg Tablet Extended Release 24hr 100 mg PO BID RF: 0 levothyroxine 25 mcg Tablet 25 mcg PO QAM RF: 0 sucralfate 1 gram Tablet 1 g PO Q6H PRN (Reason: stomach issues) RF: 0 acetaminophen 325 mg Tablet 650 mg PO Q6HR PRN (Reason: Pain, Mild (1-3)) Qty: 60 RF: 0 lithium carbonate 300 mg Tablet 300 mg PO BEDTIME RF: 0 caffeine 200 mg Tablet 200 mg PO QAM RF: 0 quetiapine 100 mg Tablet 100 mg PO BEDTIME RF: 0 lorazepam 1 mg Tablet 1 mg PO BID PRN (Reason: Anxiety) RF: 0 lamotrigine 25 mg Tablet 50 mg PO DAILY RF: 0 <Duglas Darling MD - Last Filed: 12/13/19 07:35> Sign Out Provider Sign Out Attestation: I reviewed the patient's evaluation, treatment plan and attempts to provide disposition for this patient. Discharge was deferred, hoping for for placement in the morning. The patient has received her regular medications. She has been compliant with management here in the ER. S ocial Work will be consulted in the morning, again seeking placement. I agree with the work done by ROLAN Moncada.
[2019-12-12] MEDS: LORazepam 0.5 MG TABLET 1 MG PO (15:55)
[2019-12-12 15:56] LABS: Acetaminophen < 10 ug/mL (10-30); Alanine Aminotransferase 15 IU/L (<35); Albumin 4.7 g/dL (3.5-5.0); Albumin Globulin Ratio 1.4 (1.0-2.8); Alkaline Phosphatase 240 U/L (38-126); Aspartate Aminotransferase 33 IU/L (14-36); Bilirubin Total 0.4 mg/dL (0.2-1.3); Blood Urea Nitrogen 12 mg/dL (7-17); Calcium 9.6 mg/dL (8.4-10.2); Carbon Dioxide 25 mmol/L (22-32); Chloride 103 mmol/L (98-107); Estimated Glomerular Filt Rate 46.8 mL/min (>60); Ethanol (ETOH) < 10 mg/dL; Globulin 3.3 g/dL (1.7-4.1); Glucose 92 mg/dL (70-100); HEMOLYSIS < 15 (0-50); Sodium 139 mmol/L (137-145)
[2019-12-12 16:00] LABS: Lithium 0.3 mmol/L (0.6-1.2)
[2019-12-12 16:18] LABS: UR Morphine/Opiate cutoff 300 Negative (Negative); Ur Creatinine Normal (Normal); Ur Specific Gravity Normal (Normal); Urine Amphetamines Negative (Negative); Urine Barbiturates Negative (Negative); Urine Benzodiazepines Negative (Negative); Urine Cocaine Negative (Negative); Urine MDMA Negative (Negative); Urine Methadone Negative (Negative); Urine Methamphetamines Negative (Negative); Urine Oxycodone Negative (Negative); Urine Phencyclidine Negative (Negative); Urine Tetrahydrocannabinol Negative (Negative); Urine Tricyclic Antidepressant Negative (Negative); Urine pH Normal (Normal)
[2019-12-12 16:21] LABS: Free T4, Direct Thyroxine 1.11 ng/dL (0.78-2.19)
--- NOTE | 2019-12-12 16:53 | PC.NURSE ---
want to be admitted locally, no [facility], no [facility].
--- NOTE | 2019-12-12 17:06 | PC.NURSE ---
Pt constantly walking/ pacing/ eyes down. Able to be distracted but does not stop walking. Moderate to fast speed. FAMILY LAW MEDIATOR re-eval and ordered seroquel.
[2019-12-12] MEDS: QUETIAPINE 25 MG TABLET 100 MG PO (17:07)
[2019-12-12 19:17] VITALS: BP 123/78; PULSE 81; RESP 19; TEMP 36.4
--- NOTE | 2019-12-12 21:01 | PC.NURSE ---
The patient's friend, Justice, phoned because he was having trouble finding the durán to her house to take care of her dog. Patient spoke to friend on the phone, and then ambulated to bathroom.
[2019-12-12 23:19] VITALS: BP 119/78; PULSE 93; RESP 17; TEMP 37.1
--- NOTE | 2019-12-13 00:16 | PC.NURSE ---
Pt awake, pacing in room. Reports feeling anxious. Gurpreet coordinator has called in the pharmacist for pt's routine meds which are not avail in house. Pt agreeable with plan.
[2019-12-13] MEDS: CITALOPRAM 20 MG TABLET 40 MG PO (00:36)
[2019-12-13] MEDS: lamoTRIgine 25 MG CHEW TABLET 50 MG PO ×2 (00:37→09:57)
[2019-12-13] MEDS: QUETIAPINE 100 MG TABLET PO (00:37)
[2019-12-13] MEDS: LITHIUM 300 MG ER TABLET PO (00:41)
--- NOTE | 2019-12-13 01:01 | PC.NURSE ---
Pt was pacing in room, reported anxiety. Pharmacist came into supply home meds, pt now lying down in bed resps even/unlabored.
[2019-12-13 08:38] VITALS: BP 107/75; PULSE 85; RESP 16; O2SAT 99
[2019-12-13] MEDS: LORazepam 0.5 MG TABLET 1 MG PO ×3 (09:25→21:44)
[2019-12-13] MEDS: SUCRALFATE 1 GM TABLET PO ×2 (09:57→17:33)
[2019-12-13] MEDS: LEVOTHYROXINE 25 MCG TABLET PO (09:57)
--- NOTE | 2019-12-13 11:26 | PC.NURSE ---
patient talking with social worker palliative careYodit
[2019-12-13 13:02] VITALS: BP 115/76; PULSE 83; RESP 14; O2SAT 98
--- NOTE | 2019-12-13 16:24 | CM.SWNOTE ---
PROSPECT MANAGER Note: Attempted placement today. Clinical faxed to [facility] this AM. Received notification this afternoon that they cannot accept. Therefore, faxed to both [facility] and [facility]. Awaiting response. P: Awaiting psychiatric placement. CM/YESENIA Laguerre here till 8:00pm via [employer]. RAPHAEL Spencer
--- NOTE | 2019-12-13 18:27 | CM.DPC ---
Addendum entered by Keily Laguerre R.N. 12/13/19 19:28: [facility] will accept patient for voluntary inpatient treatment. Accepting provider is ROLAN Martinez Call and Nurse to Nurse report number is [phone]. CM/RN updated ED staff and ED progress board. Keily Laguerre RN Original Note: DCP continued: CM/ RN heard back from [facility] and they are not going to accept patient. CM/RN met with patient to let her know that both [facility] and [facility] said not but that [facility] is still reviewing and CM/RN will check in with them at around 7pm to check on progress. CM/RN also contacted [facility] and [facility] to review patient for possible voluntary bed. Keily Laguerre RN.
--- NOTE | 2019-12-13 18:38 | PC.NURSE ---
I walked around the department with the patient since she was feeling restless in the room. We got some fresh air in the ambulance bay which seemed to help. She states she would like a shower tonight, so at shift change I will help her with that. Patient also states that if she isnt going to find a bed anywhere then she would leave to take care of her dog that is currently being watched by a friend. I assured her we have to wait to hear back from these other facilities ([facility] and [facility])
[2019-12-13 18:41] VITALS: BP 138/88; PULSE 80; RESP 18; O2SAT 98
--- NOTE | 2019-12-13 18:58 | PC.NURSE ---
pt states feels depressed, anxious, suicidal ideation.
--- NOTE | 2019-12-13 19:08 | PC.NURSE ---
pt more anxious after learning she didn't get accepted by 2 hospitals. pt requested medication for anxiety. reported to dr. guerin.
--- NOTE | 2019-12-13 19:23 | PC.NURSE ---
Called [place] at [facility], she states she needs more time and will return the call.
--- NOTE | 2019-12-13 19:49 | PC.NURSE ---
bg 74, patient eating sandwich, string cheese, water and juice.
--- NOTE | 2019-12-13 19:50 | PC.NURSE ---
[place] at [facility] called, report given, will call for transport.
--- NOTE | 2019-12-13 20:28 | PC.NURSE ---
patient informed of placment at [facility] in [place]. Pt ambulated to nurse station phone to call friend that is caring for dog.
--- NOTE | 2019-12-13 22:02 | PC.NURSE ---
Pt transport has arrived
[2019-12-13 22:18] VITALS: BP 131/81; PULSE 82; RESP 18; O2SAT 99
[2019-12-15 11:45] LABS: Lamotrigine Lamictal 2.1 mcg/mL (4.0-18.0)
== END 2019-12-13 22:21 ==
PROVIDERS: Nurse Practitioner; Emergency Provider Emergency Medicine; PCP Nurse Practitioner
DX: R45.851 Suicidal ideations (principal); F32.9 Major depressive disorder, single episode, unspecified
CPT/HCPCS: 36415; 80053; 80175; 80178; 80305; 80320; 80329; 81003; 81025; 82962; 84439; 84443; 85025; 99284; G0480